=== PATIENT | female | born 1990 | race African-American/Black ===

== ENCOUNTER → 2016-11-05 | Outpatient (CLI) | payer OTHER ==
[~2016-11-05] MED LIST: EFF75 PO; OXYC-57 PO; PRENTAB26 PO; VENL150C56 PO
[2016-11-05 12:29] LABS: URINE APPEARANCE CLEAR (CLEAR); URINE BILIRUBIN NEG (NEG); URINE COLOR YELLOW; URINE NITRITE NEG (NEG); URINE SPECIFIC GRAVITY 1.027 (1.000-1.030); UROBILINOGEN NEG (NEG)
[2016-11-05 12:38] LABS: MANUAL MICROSCOPIC REQUIRED? NO; REVIEW REQ? NO
== END | disposition home or self-care (01) ==
LOC: C.LABSPEC 11:32
PROVIDERS: ATTEND Obstetrics & Gynecology
DX: O34.219 Maternal care for unspecified type scar from previous cesarean delivery (principal); Z3A.00 Weeks of gestation of pregnancy not specified

== ENCOUNTER → 2016-11-12 | Outpatient (CLI) | payer OTHER ==
[2016-11-12 09:59] LABS: BASO % 0.1 %; BASO ABS # 0.01 K/uL (0-0.2); COMPLETE YES; EOS % 0.6 %; HEMATOCRIT 33.5 % (37-47); IG% 0.1 %; LYMPH ABS # 1.87 K/uL (1.2-3.4); MEAN CELL VOLUME 81.9 fL (80-100); MEAN CORPUSCULAR HEMOGLOBIN 27.9 pg (25-34); MONO % 4.6 %; NEUT % 73.6 %; PLATELET COUNT 262 K/uL (130-400); RED BLOOD COUNT 4.09 M/uL (4.2-5.4); WHITE BLOOD COUNT 8.89 K/uL (4.8-10.8)
[2016-11-13 21:13] LABS: CHLAMYDIA TRACH RNA*** NOT DETECTED (NOT DETECTED); GC (NEIS GONORRHOEAE)RNA** NOT DETECTED (NOT DETECTED)
== END | disposition home or self-care (01) ==
LOC: C.LAB1850 08:56
PROVIDERS: ATTEND Obstetrics & Gynecology
DX: O34.219 Maternal care for unspecified type scar from previous cesarean delivery (principal); Z3A.00 Weeks of gestation of pregnancy not specified

== ENCOUNTER → 2017-01-10 | Outpatient (CLI) | payer OTHER ==
[2017-01-10 13:53] LABS: GTGD 50 Grams
== END | disposition home or self-care (01) ==
LOC: C.LAB1850 09:05
PROVIDERS: ATTEND Obstetrics & Gynecology
DX: Z34.82 Encounter for supervision of other normal pregnancy, second trimester (principal)

== ENCOUNTER → 2017-03-06 | Outpatient (CLI) | payer OTHER | LOC: C.PAPS 16:06 | PROVIDERS: ATTEND Obstetrics & Gynecology | DX: D06.9 Carcinoma in situ of cervix, unspecified (principal) ==

== ENCOUNTER → 2017-04-04 | Outpatient (CLI) | payer OTHER ==
[2017-04-04 12:58] LABS: HEMATOCRIT 32.8 % (37-47)
[2017-04-04 13:57] LABS: GTGD 50 Grams
[2017-04-04 14:00] LABS: URINE APPEARANCE CLEAR (CLEAR); URINE BILIRUBIN NEG (NEG); URINE COLOR DK YELLOW; URINE EPITHELIAL CELL AUTO >30 /lpf (0-5); URINE NITRITE NEG (NEG); URINE PH 6.5 (4.5-7.5); URINE SPECIFIC GRAVITY 1.022 (1.000-1.030); UROBILINOGEN POS (NEG)
[2017-04-04 14:04] LABS: MANUAL MICROSCOPIC REQUIRED? NO; REVIEW REQ? NO
== END | disposition home or self-care (01) ==
LOC: C.LAB1850 11:58
PROVIDERS: ATTEND Obstetrics & Gynecology
DX: Z34.83 Encounter for supervision of other normal pregnancy, third trimester (principal)

== ENCOUNTER → 2017-05-31 | Outpatient (CLI) | payer OTHER | END | disposition home or self-care (01) | LOC: C.LABSPEC 17:19 | PROVIDERS: ATTEND Obstetrics & Gynecology | DX: Z34.83 Encounter for supervision of other normal pregnancy, third trimester (principal); Z3A.00 Weeks of gestation of pregnancy not specified ==

== ENCOUNTER 2017-06-03 22:08 | Outpatient (CLI) | payer OTHER ==
[~2017-06-03] VITALS: Ht 165.1 cm; Wt 121.4 kg
[2017-06-03] MEDS ORDERED: EFF75 PO (23:09)
[2017-06-03] MEDS ORDERED: PRENTAB26 PO (23:10)
[2017-06-03 23:11] VITALS: Ht 165.1 cm; Wt 121.4 kg
[2017-06-04] MEDS ORDERED: LACTATED RINGER'S 1000ML 1,000 ML IV SCH (02:00)
[2017-06-04] MEDS ORDERED: ONDANSETRON INJ 2 MG/ML 2 ML VIAL IV STA (03:31)
== END 2017-06-04 03:48 | disposition home or self-care (01) ==
LOC: C.OPB 22:08 → C.LD 22:08 → C.OPB 06-04 03:48
PROVIDERS: ATTEND Obstetrics & Gynecology
DX: O26.90 Pregnancy related conditions, unspecified, unspecified trimester (principal); M54.9 Dorsalgia, unspecified; Z3A.00 Weeks of gestation of pregnancy not specified

== ENCOUNTER 2017-06-05 23:47 | Inpatient (IN) | payer OTHER ==
[~2017-06-05] VITALS: Ht 165.1 cm; Wt 121.0 kg
[~2017-06-05 23:47] MED LIST changes: -OXYC-57 PO; -VENL150C56 PO
[2017-06-06] MEDS ORDERED: LACTATED RINGER'S 1000ML 500 ML IV ONE (00:57)
[2017-06-06 01:45] LABS: ALT/SGPT 53 U/L (12-78); AST/SGOT 60 U/L (15-37); BLOOD UREA NITROGEN 4 mg/dl (7-18); BUN/CREATININE RATIO 6.8 (10-20); CALCIUM 9.3 mg/dl (8.5-10.1); CARBON DIOXIDE 25 mmol/L (21-32); CHLORIDE 107 mmol/L (98-107); CREATININE 0.54 mg/dl (0.60-1.20); GLUCOSE 84 mg/dl (70-99); POTASSIUM 4.1 mmol/L (3.5-5.1); SODIUM 138 mmol/L (136-145)
[2017-06-06 01:48] LABS: ALB/GLOB RATIO 0.6 (0.9-2); ALKALINE PHOSPHATASE 170 U/L (45-117)
[2017-06-06 01:55] VITALS: Ht 165.1 cm; Wt 121.0 kg
[2017-06-06 02:15] LABS: BASO % 0.1 %; BASO ABS # 0.01 K/uL (0-0.2); COMPLETE YES; EOS % 0.9 %; HEMATOCRIT 35.3 % (37-47); IG% 0.2 %; LYMPH % 14.4 %; LYMPH ABS # 1.42 K/uL (1.2-3.4); MEAN CELL VOLUME 85.7 fL (80-100); MEAN CORPUSCULAR HEMOGLOBIN 28.9 pg (25-34); MEAN CORPUSCULAR HGB CONC 33.7 g/dl (32-36); MEAN PLATELET VOLUME 11.6 fL (7.4-10.4); MONO % 6.2 %; NEUT % 78.2 %; PLATELET COUNT 217 K/uL (130-400); RED BLOOD COUNT 4.12 M/uL (4.2-5.4); WHITE BLOOD COUNT 9.88 K/uL (4.8-10.8)
[2017-06-06] MEDS ORDERED: SODIUM CHLORIDE 0.9% 1000ML 1,000 ML IV SCH (02:59)
[2017-06-06] MEDS ORDERED: INFLUENZA VIRUS QUAD VACCINE 0.5 ML SYR IM. ONE (05:00)
[2017-06-06] MEDS ORDERED: INFLUENZA ADMINISTRATION CHARGE ONE (05:00)
[2017-06-06 08:14] LABS: BASO % 0.1 %; BASO ABS # 0.01 K/uL (0-0.2); COMPLETE YES; EOS % 1.2 %; HEMATOCRIT 34.3 % (37-47); IG% 0.3 %; LYMPH % 16.6 %; LYMPH ABS # 1.66 K/uL (1.2-3.4); MEAN CELL VOLUME 85.5 fL (80-100); MEAN CORPUSCULAR HEMOGLOBIN 28.4 pg (25-34); MEAN CORPUSCULAR HGB CONC 33.2 g/dl (32-36); MEAN PLATELET VOLUME 11.2 fL (7.4-10.4); MONO % 5.1 %; NEUT % 76.7 %; PLATELET COUNT 207 K/uL (130-400); RED BLOOD COUNT 4.01 M/uL (4.2-5.4); WHITE BLOOD COUNT 10.03 K/uL (4.8-10.8)
[2017-06-06 08:39] LABS: BLOOD UREA NITROGEN 3 mg/dl (7-18); BUN/CREATININE RATIO 6.3 (10-20); CALCIUM 9.5 mg/dl (8.5-10.1); CARBON DIOXIDE 22 mmol/L (21-32); CHLORIDE 109 mmol/L (98-107); CREATININE 0.49 mg/dl (0.60-1.20); GLUCOSE 69 mg/dl (70-99); POTASSIUM 3.7 mmol/L (3.5-5.1); SODIUM 139 mmol/L (136-145); URIC ACID 4.6 mg/dl (2.6-7.2)
[2017-06-06 08:42] LABS: ALB/GLOB RATIO 0.5 (0.9-2); ALKALINE PHOSPHATASE 162 U/L (45-117); ALT/SGPT 49 U/L (12-78); AST/SGOT 56 U/L (15-37)
[2017-06-06] MEDS ORDERED: ACETAMINOPHEN 325 MG TAB PO STA (09:03)
[2017-06-06] MEDS ORDERED: LACTATED RINGER'S 1000ML 1,000 ML IV SCH ×2 (10:01→11:00)
[2017-06-06] MEDS ORDERED: CITRIC ACID/SODIUM CITRATE 15 ML UDC PO ONE (10:15)
[2017-06-06] MEDS ORDERED: CEFAZOLIN IV 3,000 MG in DEXTROSE 5% 50ML 50 ML IV SCH (10:30)
[2017-06-06] MEDS ORDERED: VENL150C56 PO (10:34)
--- NOTE | 2017-06-06 11:31 | HISTORY & PHYSICAL EXAMINATION ---
DATE OF ADMISSION: 06/06/2017 PRINCIPAL DIAGNOSES: Intrauterine at 37.1 weeks, gestational hypertension and prior section. PRINCIPAL PROCEDURE: Repeat low transverse cervical section. HISTORY OF PRESENT ILLNESS: The patient is a 27-year-old -Maldivian female G3, P1-0-1-1, EDC of 06/25/2017, who presented with a history of nausea and vomiting 3 days ago. This resolved with IV fluids. She then presented with right upper quadrant sharp pain especially when she was coughing the night prior to this admission. During her evaluation, she received IV fluids because of dehydration. She was noted to have pressures that were intermittently 140/90. PIH labs are normal. She did have a mildly elevated AST, which has now normalized. Platelet count is 207,000, which is stable from her prior blood work done approximately 6 hours ago. Because of the persistent elevation and intermittent nature of her elevated blood pressure of 140/90, she has now been diagnosed with gestational hypertension again. Her prior was induced because of gestational hypertension, which resulted in section because of failure to progress. She had already been scheduled for repeat section at 39 weeks; however, because of the development of gestational hypertension again, we are going to proceed with section now. PAST MEDICAL HISTORY: Significant for depression and severe cervical dysplasia. PAST SURGICAL HISTORY: She has had a section in 2010 for failure to progress with no complications. She has had a LEEP procedure in 2016 for the cervical dysplasia. ALLERGIES: She has no known drug allergies. MEDICATIONS: Effexor 150 mg daily and vitamin. OBSTETRICAL AND GYNECOLOGICAL HISTORY: No history of VD, PID or herpes; however, she does have a history of severe cervical dysplasia treated with a LEEP in 2016. She has had one miscarriage in 2008. In 2009, delivery at 37 weeks of a 5 pound 14 ounce male by section because of failure to progress. SOCIAL HISTORY: She smokes occasionally. No alcohol use during . No drugs. HISTORY: Blood type is O positive. Antibody screen is negative. Rubella is immune. RPR is nonreactive. Hepatitis is negative. HIV is negative. Chlamydia and GC are negative. Cystic fibrosis was declined. Diabetes screens have been within normal limits. Anatomy scan was complete and within normal limits. Hemoglobin today is 11.4 and hematocrit 34.3. GBS is negative. Pap smear was within normal limits as well. PHYSICAL EXAMINATION: VITAL SIGNS: Pressures have been ranging from 120/70 to 140/92. LUNGS: Clear to auscultation. HEART: Regular rate and rhythm. No murmurs or gallops. ABDOMEN: Gravid and consistent with term in size. Estimated weight is 6 pounds. There is some mild tenderness in the right upper quadrant with deep palpation. No CVA tenderness is present. She has a well-healed low transverse skin incision. No hepatosplenomegaly or other masses palpable. EXTREMITIES: Without cyanosis or edema. There is no calf tenderness. PELVIC: Deferred. ASSESSMENT: A 27-year-old with a history of gestational hypertension with her first , now presenting with gestational hypertension again by criteria based on blood pressures, although labs are within normal limits. We will proceed with repeat low transverse cervical section at this time as this is the patient's request for repeat section and not a trial of labor. Please see the orders for further directions. PABLO
[2017-06-06] MEDS ORDERED: MoRPHine SULFATE PF 1 MG/ML 10 ML AMP/VIAL ONE (17:08)
[2017-06-06] MEDS ORDERED: CITRIC ACID/SODIUM CITRATE 15 ML UDC ONE (17:22)
[2017-06-06] MEDS ORDERED: OXYTOCIN INJ 10 UNITS/ML VIAL ONE ×2 (18:41→18:52)
[2017-06-06] MEDS ORDERED: ONDANSETRON INJ 2 MG/ML 2 ML VIAL ONE (18:41)
[2017-06-06] MEDS ORDERED: DC PCA PRN (19:15)
[2017-06-06] MEDS ORDERED: LANOLIN OINT EXT PRN ×2 (19:15)
[2017-06-06] MEDS ORDERED: SENNA 8.6 MG TAB PO PRN (19:15)
[2017-06-06] MEDS ORDERED: PROMETHAZINE HCL INJ 25 MG in SODIUM CHLORIDE 0.9% 50ML 50 ML IV PRN (19:15)
[2017-06-06] MEDS ORDERED: MAGNESIUM HYDROXIDE SUSP 30 ML UDC PO PRN (19:15)
[2017-06-06] MEDS ORDERED: SODIUM CHLORIDE 0.9% 1000ML 1,000 ML IV PRN (19:20)
[2017-06-06] MEDS ORDERED: NALOXONE HCL INJ 0.08 MG in SYRINGE 1.8 ML IV PRN (19:20)
[2017-06-06] MEDS ORDERED: NALOXONE HCL INJ 1 MG in SODIUM CHLORIDE 0.9% 1000ML 1,000 ML IV PRN (19:20)
[2017-06-06] MEDS ORDERED: LACTATED RINGER'S 1000ML 500 ML IV PRN (19:20)
--- NOTE | 2017-06-06 19:20 | Anesthesiology Progress Note ---
Anesthesia Post Op Note Date & Time Jun 06, 2017 at 19:20 Vital Signs Pain Intensity: 7.0 Notes Mental Status: alert / awake / arousable, participated in evaluation Pt Amnestic to Procedure: Yes Nausea / Vomiting: adequately controlled Pain: adequately controlled Airway Patency, RR, SpO2: stable & adequate BP & HR: stable & adequate Hydration State: stable & adequate Neuraxial Anesthesia: was administered, sensory block is resolving Anesthetic Complications: no major complications apparent
[2017-06-06] MEDS ORDERED: ONDANSETRON INJ 2 MG/ML 2 ML VIAL IV PRN (19:30)
[2017-06-06] MEDS ORDERED: NALBUPHINE HCL INJ 10 MG/ML AMP IV PRN (19:30)
[2017-06-06] MEDS ORDERED: EpHEDrine SULFATE INJ 50 MG/ML AMP IV PRN (19:30)
[2017-06-06] MEDS ORDERED: NO NARCOTICS OR SEDATIVES SCH (19:30)
[2017-06-06] MEDS ORDERED: DiphenhydrAMINE HCL 50 MG/ML VIAL IV PRN (19:30)
[2017-06-06] MEDS ORDERED: NALOXONE HCL 0.4 MG/1 ML VIAL/CARP IV PRN (19:30)
[2017-06-06] MEDS ORDERED: MoRPHine SULFATE 2 MG/ML CARP IV PRN (19:30)
[2017-06-06] MEDS ORDERED: MoRPHine SULFATE PF 1 MG/ML 10 ML AMP/VIAL INT SPINAL PRN (19:30)
[2017-06-06] MEDS ORDERED: KETOROLAC TROMETHAMINE 30 MG/ML VIAL ONE (19:48)
[2017-06-06] MEDS: MEPERIDINE HCL 25 MG/ML CARP IV PRN (20:47)
[2017-06-06] MEDS: OXYTOCIN INJ 20 UNITS in LACTATED RINGER'S 1000ML 1,000 ML IV SCH (21:41)
[2017-06-06 21:50] VITALS: BP 125/88; PULSE 67; TEMP 36.5; O2SAT 98
[2017-06-06] MEDS: DOCUSATE SODIUM 100 MG CAP PO SCH (22:07)
[2017-06-06] MEDS: SIMETHICONE 80 MG CHEW PO SCH (22:08)
[2017-06-06 22:55] VITALS: BP 129/84; PULSE 66; TEMP 36.5; O2SAT 99
[2017-06-07] VITALS (16 sets, daily range): BP systolic 125–136; BP diastolic 80–96; PULSE 76–97; TEMP 36.5–37; O2SAT 16–99
--- NOTE | 2017-06-07 00:27 | OPERATIVE REPORT ---
DATE OF OPERATION: 06/06/2017 SURGEON: Dr. Dot Vargas. MAIL CLERK: Anel Jose DO. PREOPERATIVE DIAGNOSIS: Intrauterine at 37.1 weeks, gestational hypertension and prior section. POSTOPERATIVE DIAGNOSIS: Same plus delivery of a viable female infant, 5 pounds 7 ounces. PROCEDURE: Repeat low transverse cervical section. ANESTHESIA: Subarachnoid block. BLOOD LOSS: 500 mL HISTORY: The patient is a 27-year-old -Hungarian female G3, P1-0-1-1, EDC of 06/25/2017 who presented with a history of nausea and vomiting 3 days ago. She received IV fluids in the Emergency Room and was feeling better but developed sharp right upper quadrant pain, especially with coughing the night prior to this admission. During her evaluation, she was noted to have blood pressures that were in the range above 140/90. This was happening intermittently. PIH labs were all within normal limits. She did have history of gestational hypertension with her first because she was 37 weeks and having blood pressures that were persistently elevated, thus giving us a diagnosis of gestational hypertension once again, it was felt prudent to proceed with repeat low transverse cervical section. The patient understands the risks of the procedure, and all her questions were answered prior to going to the section room. GROSS FINDINGS: Uterus is gravid and consistent with a term in size. Bilateral ovaries and fallopian tubes are grossly normal. PROCEDURE: After the patient received adequate subarachnoid block, she was prepped and draped in usual sterile fashion. A low transverse skin incision was made through her prior scar and carried to the fascia with the same scalpel. The fascial incision was then extended with Anderson scissors. The edges were then grasped with Wale clamps and the underlying rectus muscles bluntly and sharply dissected off the overlying fascia. The peritoneum was entered sharply and the rectus muscles were then completely divided along the midline with Metzenbaum scissors. The bladder was taken down off the anterior surface of the uterus. Lower uterine segment was entered with a scalpel and extended transversely. The membranes were ruptured for clear fluid. The was delivered from the occiput posterior presentation. Delivery was accomplished with flexing the head. Mouth and nasopharynx were suctioned on the operative field. The rest of the infant delivered without difficulty. Cord was clamped and cut. There was spontaneous vigorous crying and the was moving all 4 limbs. She was then handed off to Dr. Cardenas who was in attendance as eligibility consultant. The placenta was then extracted and retained membranes were then removed using a moist lap sponge and ring forceps. The uterus was then closed in 2 layers in a running locking imbricating fashion. The hemostasis was excellent on the uterine incision. The posterior cul-de-sac was irrigated with normal saline. The incision was examined once more and continued to have excellent hemostasis. The uterus was placed back inside the abdominal cavity and the gutters were explored and found to be free of any clot or fluid. The rectus muscles were closed in the midline with individual stitches of 0 Monocryl. The fascia was closed in a running fashion with 0 Vicryl. The adipose layer was then irrigated with normal saline and the skin edges were reapproximated using a subcuticular stitch of 4-0 Vicryl. Urine was clear at the end of the case. Mother and were doing well after delivery. I attest to the content of the Intraoperative Record and any orders documented therein. Any exception s are noted below.
[2017-06-07] MEDS: GUAIFENESIN 600 MG TABCR PO PRN ×2 (00:58→22:21)
[2017-06-07] MEDS: KETOROLAC TROMETHAMINE 30 MG/ML VIAL IV. PRN ×2 (02:29→08:14)
[2017-06-07] MEDS: OXYTOCIN INJ 20 UNITS in LACTATED RINGER'S 1000ML 1,000 ML IV SCH (05:43)
[2017-06-07 06:29] LABS: HEMATOCRIT 31.2 % (37-47)
[2017-06-07] MEDS ORDERED: VENLAFAXINE HCL XR 150 MG CAPXR PO SCH (08:00)
[2017-06-07] MEDS ORDERED: PRENATAL VITAMIN TAB PO SCH (08:00)
[2017-06-07] MEDS: SIMETHICONE 80 MG CHEW PO SCH ×4 (08:26→22:21)
[2017-06-07] MEDS: DOCUSATE SODIUM 100 MG CAP PO SCH ×2 (08:26→20:32)
[2017-06-07] MEDS: PRENATAL VITAMIN TAB PO SCH (08:27)
[2017-06-07] MEDS: VENLAFAXINE HCL XR 150 MG CAPXR PO SCH (08:27)
--- NOTE | 2017-06-07 08:55 | Progress Note ---
Subjective Jun 07, 2017. Subjective conversation w/ patient, physical exam, chart review, lab review Ambulation: limited ambulation Voiding: cameron catheter in place Diet Tolerance: Clear Liquids Lochia: Moderate Feeding Type: Breast Feeding Pain: controlled Review of Systems Respiratory: No shortness of breath Cardiac: No chest pain Abdomen: No nausea, No vomiting Female : No dysuria Objective Vital Signs Date Time Temp Pulse Resp B/P (MAP) Pulse Ox O2 Delivery O2 Flow Rate FiO2 06/07/17 06:50 16 97 06/07/17 05:50 16 97 06/07/17 04:50 16 98 06/07/17 03:55 36.7 78 16 133/89 (104) 95 Room Air 06/07/17 03:50 16 99 06/07/17 02:50 16 98 06/07/17 01:50 97 16 06/07/17 00:50 16 98 06/07/17 00:05 36.5 90 16 126/85 (99) 96 Room Air 06/07/17 00:05 16 96 06/06/17 22:55 36.5 66 16 129/84 (99) 99 Room Air 06/06/17 22:55 Room Air 06/06/17 22:55 16 99 06/06/17 21:50 98 Room Air 06/06/17 21:50 Room Air 06/06/17 21:50 16 98 06/06/17 21:50 36.5 67 16 125/88 (100) Room Air Physical Exam General Appearance: WELL-APPEARING, WD/WN, NO APPARENT DISTRESS Respiratory/Chest: lungs clear, normal breath sounds, no respiratory distress Cardiovascular: regular rate, rhythm, no gallop Abdomen: normal bowel sounds, soft Fundus: Firm, Tender (appropriately tender), Relation to Umbilicus (at level of U) Incision Description: Clean, Dry & Intact Extremities: no calf tenderness Laboratory Results Last 24 Hours Test 06/07/17 06:06 Hemoglobin 10.2 g/dL Hematocrit 31.2 % Assessment and Plan Post-Op Day#: 1 Continue Routine Care: Resident Physician Supervision Note: I was present with Dr. Marie during the history and exam. I discussed the case with the resident and agree with the findings and plan as documented in the note. Any exceptions or clarifications are listed here: [None] Documented By: Dot Matos - Vital Signs reviewed and WNL.. - Hgb 10.2 (on admission was 11.9. Post op 11.4.) - Blood Type: O+, GBS - , Rubella Immune. - Pt is doing well clinically. - Monitor and Control pain with Motrin PRN, resume regular diet as tolerated, Monitor Lochia. - Encourage breast feeding. - Continue routine post op care. LINDY MARIE PGY1 FM RESIDENT Resident Tracking Resident Involvement: Resident Care Provided Care Provided: OB Delivery
[2017-06-07] MEDS: MEPERIDINE HCL 25 MG/ML CARP IV PRN (10:04)
[2017-06-07] MEDS ORDERED: MEPERIDINE HCL 50 MG/ML CARP IV PRN ×2 (12:00)
[2017-06-07] MEDS ORDERED: ZOLPIDEM TARTRATE 5 MG TAB PO PRN (12:00)
[2017-06-07] MEDS ORDERED: OXYCODONE/ACETAMINOPHEN 5-325 TAB PO PRN (12:00)
[2017-06-07] MEDS ORDERED: DiphenhydrAMINE HCL 50 MG/ML VIAL IV PRN (12:00)
[2017-06-07] MEDS ORDERED: DC INTRASPINAL MORPHINE SCH (12:00)
[2017-06-07] MEDS ORDERED: KETOROLAC TROMETHAMINE 30 MG/ML VIAL IV. PRN (12:00)
[2017-06-07] MEDS ORDERED: ONDANSETRON INJ 2 MG/ML 2 ML VIAL IV PRN (12:00)
[2017-06-07] MEDS: IBUPROFEN 600 MG TAB PO PRN ×3 (12:13→20:32)
[2017-06-07] MEDS: OXYCODONE/ACETAMINOPHEN 5-325 TAB PO PRN ×3 (12:13→20:33)
--- NOTE | 2017-06-07 15:26 | Discharge Instructions ---
Discharge Instructions Date of Service Jun 07, 2017. Admission Reason for Admission: Check Pain Discharge Discharge Diagnosis / Problem: DELIVERY Discharge Goals Goal(s): Routine recovery after Medications Continue Dispensed Medications: supercream, dermaplast, tucks, lansinoh Activity Recommendations Activity Limitations: per Instructions/Follow-up section . Instructions / Follow-Up Instructions / Follow-Up ACTIVITY RECOMMENDATIONS: * Gradual return to full activity over the next 2-3 weeks. * No lifting - nothing heavier than baby over the next 2-3 weeks. * Do not engage in vigorous exercise, sexual activity or sports until cleared by your physician. * Do not drive or operate any motorized equipment until cleared by your physician. * You may shower/bathe daily. MEDICATIONS: For discomfort or pain, you may use Acetaminophen (Tylenol), Ibuprofen (Advil), or Naproxen (Aleve) following the package directions. For constipation you may use Colace following the package directions. BREAST CARE: If you are not breast feeding: * Wear a supportive bra 24 hours a day for one to two weeks. * Avoid stimulating your breasts and nipples as much as possible during the first few weeks after delivery. * When taking a shower, have the warm water hit your back, not breasts. * When your breasts feel full, apply ice packs. Usually three to four times a day helps ease the discomfort. * Take a mild pain medication (Tylenol / Motrin) when you are uncomfortable. If breast feeding: * Use breast milk to lubricate nipples. Lansinoh cream may be used for sore nipples. You do not need to remove cream prior to breast feeding. If using a different brand of cream, check the label for directions regarding removal of cream prior to nursing. * Wear a supportive bra. * If having problems with breasts or breast feeding, call a industrial methods consultant or your health care provider. SPECIAL CARE INSTRUCTIONS: When you are discharged from the hospital, it is important for you to follow the instructions listed below: * During the first week at home, you should be able to care for yourself and your baby. In addition, the usual light household activities are encouraged. * Limit your activities to the way you feel. Do not try to clean the house or move furniture. Be sensible. * If you actively engage in sports and have done so up until the time of your delivery, you may resume these activities as soon as you feel able. This may take up to one month or even longer. Use good judgment. * Continue to take your vitamins for at least six weeks after the of your baby. * Your diet need not be limited unless you were on a special diet before your delivery. Breast-feeding mothers need around 2500 calories per day and at least 64-80 ounces of fluid per day (8 to 10 glasses). * You should eat foods from the four major food groups. Crash diets or fad diets are to be avoided. Eating lean meats, fresh fruits and vegetables, low-fat dairy products, high fiber foods and a regular exercise program, will help you get back to your pre- weight without putting your health at risk. * Constipation is sometimes a problem after delivery. Take a mild laxative as needed. If breast feeding, Milk of Magnesia is acceptable to use. You may use a suppository or Fleets enema. * A daily shower or tub bath is suggested. Wash incision daily with warm soapy water and pat dry. It doesn't need to be covered unless drainage is present. * A bloody vaginal discharge will usually continue until around four weeks . A small amount of bleeding may continue for as long as six weeks. Vaginal discharge changes from the bright red bleeding after delivery to pink then brownish and finally yellowish-pink before becoming white and disappearing. * Bleeding may increase with activity. Your first period may come in 4-8 weeks. If you are breast feeding, your period may be delayed even longer. * [place] (sex) can begin whenever both you and your partner feel comfortable and do not have any form of genital infection. It is recommended that you wait at least six weeks for internal and external healing to occur. If you have questions, please talk to your health care practitioner. A condom should be used to prevent infection and . * Foreplay, gentle intercourse and lubrication is very important the first several times to prevent pain. A water-based lubricant such as K-Y jelly or Astroglide may be used. * If you have RH negative blood and your baby is RH positive, you will receive RHOGAM by injection prior to discharge. The nurse will give you a card to keep with you that has the date and place that you received RHOGAM after delivery. * During your care, you had a Rubella screen done to check for the presence of rubella antibodies in your blood. If your test was negative, you will receive a Rubella vaccine prior to discharge. This vaccine may cause a fever, soreness at the injection site and flu-like symptoms. If these symptoms persist, notify your health care practitioner. is not advised for one month after a Rubella vaccine. * Verbalizes understanding of car seat law as reviewed with patient nursing. * Car Seat hand-out given and reviewed with patient by nursing. * Shaken baby information reviewed with patient by nursing. Call you doctor if: * Heavy bleeding (saturating several pads an hour) or passing clots the size of your fist. * A fever >101 degrees F (38.3 degrees C) on two occasions four hours apart and /or chills. * Unusual pain in the pelvic or vaginal areas. * Call the doctor for any increased redness, drainage or swelling around the incision and any pain unrelieved by prescribed pain medication. * "Baby Blues" lasting longer than two weeks. If you have any questions or concerns, call your health care practitioner at . FOLLOW UP VISIT: * Please call the office at to schedule a 6 week examination. It is important you keep this appointment. It is important for you to make arrangements for either yearly or twice yearly check-ups thereafter. Current Hospital Diet Patient's current hospital diet: Regular OB Diet Discharge Diet Recommended Diet: Regular Diet Procedures Procedures Performed: LOW TRANSVERSE SECTION DELIVERY FOR LIVE FEMALE INFANT AT 1822 Pending Studies Studies pending at discharge: no Medical Emergencies . Who to Call and When: Medical Emergencies: If at any time you feel your situation is an emergency, please call [phone] immediately. . Non-Emergent Contact Non-Emergency issues call your: Primary Care Provider . . "Provider Documentation" section prepared by Lucia Marie. . VTE Core Measure Inpt VTE Proph given/why not?: SCD's
[2017-06-07] MEDS ORDERED: BISACODYL 5 MG TABEC PO ONE (22:00)
[2017-06-08] MEDS: IBUPROFEN 600 MG TAB PO PRN ×4 (03:47→18:36)
[2017-06-08] MEDS: OXYCODONE/ACETAMINOPHEN 5-325 TAB PO PRN ×4 (03:48→18:35)
[2017-06-08 08:12] LABS: BASO % 0.1 %; BASO ABS # 0.01 K/uL (0-0.2); COMPLETE YES; EOS % 0.9 %; HEMATOCRIT 29.1 % (37-47); IG% 0.3 %; LYMPH % 16.7 %; LYMPH ABS # 1.69 K/uL (1.2-3.4); MEAN CELL VOLUME 84.3 fL (80-100); MEAN CORPUSCULAR HEMOGLOBIN 28.1 pg (25-34); MEAN CORPUSCULAR HGB CONC 33.3 g/dl (32-36); MEAN PLATELET VOLUME 11.1 fL (7.4-10.4); MONO % 5.2 %; NEUT % 76.8 %; PLATELET COUNT 180 K/uL (130-400); RED BLOOD COUNT 3.45 M/uL (4.2-5.4); WHITE BLOOD COUNT 10.09 K/uL (4.8-10.8)
--- NOTE | 2017-06-08 08:20 | Progress Note ---
Subjective Jun 08, 2017. Subjective conversation w/ patient, physical exam, chart review, lab review Ambulation: ambulating normally Voiding: no voiding problems Passing Gas: Yes Diet Tolerance: Regular Diet Lochia: Moderate Feeding Type: Breast Feeding Pain: controlled Review of Systems Respiratory: No shortness of breath Cardiac: No chest pain Abdomen: No nausea, No vomiting Female : No dysuria Objective Vital Signs Date Time Temp Pulse Resp B/P (MAP) Pulse Ox O2 Delivery O2 Flow Rate FiO2 06/07/17 23:50 Room Air 06/07/17 23:50 36.7 76 18 132/92 (105) Room Air 06/07/17 16:15 36.6 87 20 134/84 (101) 98 Room Air 06/07/17 16:15 98 Room Air 06/07/17 12:00 36.8 97 24 125/96 (106) 96 Room Air 06/07/17 12:00 24 96 06/07/17 11:00 20 97 06/07/17 10:00 20 97 06/07/17 09:00 20 97 Physical Exam General Appearance: WELL-APPEARING, WD/WN, NO APPARENT DISTRESS Respiratory/Chest: lungs clear, normal breath sounds, no respiratory distress Cardiovascular: regular rate, rhythm, no gallop Abdomen: normal bowel sounds, soft Fundus: Firm, Tender (appropriately tender), Relation to Umbilicus (1 below U) Incision Description: Clean, Dry & Intact Extremities: no calf tenderness Laboratory Results Last 24 Hours Test 06/08/17 07:03 White Blood Count 10.09 K/uL Red Blood Count 3.45 M/uL Hemoglobin 9.7 g/dL Hematocrit 29.1 % Mean Corpuscular Volume 84.3 fL Mean Corpuscular Hemoglobin 28.1 pg Mean Corpuscular Hemoglobin Concent 33.3 g/dl Platelet Count 180 K/uL Mean Platelet Volume 11.1 fL Neutrophils (%) (Auto) 76.8 % Lymphocytes (%) (Auto) 16.7 % Monocytes (%) (Auto) 5.2 % Eosinophils (%) (Auto) 0.9 % Basophils (%) (Auto) 0.1 % Neutrophils # (Auto) 7.75 K/uL Lymphocytes # (Auto) 1.69 K/uL Monocytes # (Auto) 0.52 K/uL Eosinophils # (Auto) 0.09 K/uL Basophils # (Auto) 0.01 K/uL RDW Standard Deviation 41.1 fL RDW Coefficient of Variation 13.6 % Immature Granulocyte % (Auto) 0.3 % Immature Granulocyte # (Auto) 0.03 K/uL Assessment and Plan Post-Op Day#: 2 Continue Routine Care: - Vital Signs reviewed and WNL.. - Hgb 9.7 (on admission was 11.9. Post op 11.4. Yesterday was 10.2) - Blood Type: O+, GBS - , Rubella Immune. - Pt is doing well clinically. - Monitor and Control pain with Motrin PRN, resume regular diet as tolerated, Monitor Lochia. - Encourage breast feeding. - Continue routine post op care. LINDY MARIE PGY1 FM RESIDENT Resident Physician Supervision Note: I was present with Dr. Marie during the history and exam. I discussed the case with the resident and agree with the findings and plan as documented in the note. Any exceptions or clarifications are listed here: POD#2 doing well .Continue routine postop care. Documented By: Anel Jose Resident Tracking Resident Involvement: Resident Care Provided Care Provided: OB Delivery
[2017-06-08 08:57] VITALS: BP 135/84; PULSE 98; TEMP 36.7; O2SAT 97
[2017-06-08] MEDS: SIMETHICONE 80 MG CHEW PO SCH ×4 (08:57→20:14)
[2017-06-08] MEDS: PRENATAL VITAMIN TAB PO SCH (08:58)
[2017-06-08] MEDS: DOCUSATE SODIUM 100 MG CAP PO SCH ×2 (08:58→20:14)
[2017-06-08] MEDS: VENLAFAXINE HCL XR 150 MG CAPXR PO SCH (08:58)
[2017-06-08 14:59] VITALS: BP 141/93; PULSE 94; TEMP 36.7; O2SAT 98
[2017-06-08 23:15] VITALS: BP 143/96; PULSE 79; TEMP 36.5
[2017-06-09 03:45] VITALS: BP 123/88; PULSE 88; TEMP 36.4
[2017-06-09] MEDS: IBUPROFEN 600 MG TAB PO PRN ×3 (03:52→11:56)
[2017-06-09] MEDS: OXYCODONE/ACETAMINOPHEN 5-325 TAB PO PRN ×3 (03:53→11:57)
[2017-06-09 07:40] VITALS: BP 137/94; PULSE 80; TEMP 36.5; O2SAT 99
[2017-06-09] MEDS: DOCUSATE SODIUM 100 MG CAP PO SCH (07:50)
[2017-06-09] MEDS: VENLAFAXINE HCL XR 150 MG CAPXR PO SCH (07:50)
[2017-06-09] MEDS: PRENATAL VITAMIN TAB PO SCH (07:50)
[2017-06-09] MEDS: SIMETHICONE 80 MG CHEW PO SCH ×2 (07:50→11:56)
[2017-06-09] MEDS ORDERED: OXYC-57 PO (08:58)
--- NOTE | 2017-06-09 08:58 | Progress Note ---
Subjective Jun 09, 2017. Subjective conversation w/ patient, physical exam, lab review Ambulation: ambulating normally Voiding: no voiding problems Passing Gas: Yes Diet Tolerance: Regular Diet Lochia: Small Feeding Type: Breast Feeding Pain: controlled with oral pain meds Objective Vital Signs Date Time Temp Pulse Resp B/P (MAP) Pulse Ox O2 Delivery O2 Flow Rate FiO2 06/09/17 03:45 36.4 88 18 123/88 (100) Room Air 06/08/17 23:15 Room Air 06/08/17 23:15 36.5 79 20 143/96 (112) Room Air 06/08/17 16:50 Room Air 06/08/17 14:59 36.7 94 16 141/93 (109) 98 Room Air 06/08/17 09:02 Room Air Physical Exam General Appearance: WELL-APPEARING, WD/WN, NO APPARENT DISTRESS Respiratory/Chest: lungs clear, normal breath sounds Cardiovascular: regular rate, rhythm Abdomen: normal bowel sounds, non tender, soft Fundus: Firm, Non-Tender, Relation to Umbilicus (at u) Incision Description: Clean, Dry & Intact Extremities: non-tender, normal inspection, no pedal edema Assessment and Plan Post-Op Day#: 3 Continue Routine Care: Plan d/c. Instructions given. Script for narcotics and breast pump.
[2017-06-09 12:00] VITALS: BP 135/86
[2017-06-09 14:45] VITALS: BP_DIAS 86; PULSE 80; TEMP 36.5
--- NOTE | 2017-06-15 00:09 | DISCHARGE SUMMARY ---
PRINCIPAL DIAGNOSES: Intrauterine at 37.1 weeks, gestational hypertension and prior section. PRINCIPAL PROCEDURE: Repeat low transverse cervical section. HISTORY OF PRESENT ILLNESS: The patient is a 27-year-old -Micron[place] female G3, P1-0-1-1 EDC of 06/25/2017 presented with a history of nausea and vomiting 3 days prior to her admission. She received IV fluids in the Emergency Room and was feeling better but developed sharp right lower quadrant pain, especially with coughing. She presented to labor and delivery for evaluation. During that evaluation, her liver enzymes were somewhat elevated with an AST of 60. Blood pressures on several readings were 140/90 or higher. Her pain did resolve and seemed to be musculoskeletal in origin, her AST also normalized; however, because of her elevated blood pressures, she met criteria for gestational hypertension and being at 37 weeks was felt prudent to proceed with her repeat section which she had scheduled for later in the . This was done without complications. The infant was in the direct OP presentation with delivery. She had an uncomplicated postop course. Her blood pressures normalized as well after delivery, she remained afebrile throughout her hospital course. She was eating regular diet and ambulating without any difficulty. She was also voiding without any difficulty. Pain was well controlled with her oral medications. LABORATORY DATA: Hemoglobin on admission was 11.9, hematocrit 35.3, platelet count was 217,000. Postoperatively, hemoglobin 10.2, hematocrit 31.2. Repeat on her second postop day - hemoglobin 9.7, hematocrit 29.1 with a white count of 180,000. She was sent home with prescriptions for Percocet 1-2 tablets p.o. q. 4 hours p.r.n. pain, Motrin 600 mg p.o. q. 4 hours p.r.n. pain. She is to be seen in the office in 2 weeks for a blood pressure check as well as a 6-week visit from delivery for her exam. She is to call for any PIH symptoms including epigastrics epigastric pain, headaches with visual changes. She is also call for temperature of 101 degrees or higher, heavy vaginal bleeding, burning with urination, increased redness, drainage or pain from her incision, calf tenderness or any other concerns. PABLO
== END 2017-06-09 15:20 | disposition home or self-care (01) | DRG 765 ==
LOC: C.OPB 23:47 → C.OBG 23:47 → C.OPB 06-06 10:04 → C.LD 06-06 19:23 → C.OBG 06-06 21:55
PROVIDERS: ADMIT Obstetrics & Gynecology; ATTEND Obstetrics & Gynecology
PROC: 10D00Z1 Extraction of Products of Conception, Low, Open Approach (ICD-10-PCS; principal; 2017-06-06 17:58)
DX: O13.4 Gestational [pregnancy-induced] hypertension without significant proteinuria, complicating childbirth (principal); Z68.41 Body mass index [BMI] 40.0-44.9, adult; O34.211 Maternal care for low transverse scar from previous cesarean delivery; N85.8 Other specified noninflammatory disorders of uterus; O99.52 Diseases of the respiratory system complicating childbirth; J06.9 Acute upper respiratory infection, unspecified; O99.284 Endocrine, nutritional and metabolic diseases complicating childbirth; E86.0 Dehydration; O99.89 Other specified diseases and conditions complicating pregnancy, childbirth and the puerperium; R10.11 Right upper quadrant pain; R51 Headache; O99.334 Smoking (tobacco) complicating childbirth; F17.200 Nicotine dependence, unspecified, uncomplicated; O99.344 Other mental disorders complicating childbirth; F32.9 Major depressive disorder, single episode, unspecified; F41.9 Anxiety disorder, unspecified; O99.214 Obesity complicating childbirth; Z37.0 Single live birth; Z3A.37 37 weeks gestation of pregnancy; Z86.001 Personal history of in-situ neoplasm of cervix uteri; Z79.899 Other long term (current) drug therapy

== ENCOUNTER 2017-08-27 09:33 | Emergency (ER) | payer OTHER ==
[~2017-08-27] VITALS: Ht 165.1 cm; Wt 114.0 kg
[~2017-08-27 09:33] MED LIST changes: -EFF75 PO; +OXYC-57 PO; +VENL150C56 PO
[2017-08-27 09:37] VITALS: TEMP 37.4; Ht 165.1 cm; Wt 114.0 kg
[2017-08-27] MEDS ORDERED: SODIUM CHLORIDE 0.9% 1000ML 1,000 ML IV STA (09:59)
[2017-08-27 10:18] LABS: URINE APPEARANCE CLEAR (CLEAR); URINE BILIRUBIN NEG (NEG); URINE COLOR YELLOW; URINE EPITHELIAL CELL AUTO 20-30 /lpf (0-5); URINE NITRITE NEG (NEG); URINE PH 5.5 (4.5-7.5); URINE SPECIFIC GRAVITY 1.021 (1.000-1.030); UROBILINOGEN NEG (NEG); ZZUR CULT IF INDIC CLEAN CATCH NO
[2017-08-27 10:20] LABS: MANUAL MICROSCOPIC REQUIRED? NO; REVIEW REQ? NO
[2017-08-27 10:37] LABS: BASO % 0.1 %; BASO ABS # 0.01 K/uL (0-0.2); COMPLETE YES; EOS % 0.1 %; HEMATOCRIT 38.1 % (37-47); IG% 0.3 %; LYMPH % 12.3 %; LYMPH ABS # 0.98 K/uL (1.2-3.4); MEAN CELL VOLUME 83.7 fL (80-100); MEAN CORPUSCULAR HEMOGLOBIN 28.8 pg (25-34); MEAN CORPUSCULAR HGB CONC 34.4 g/dl (32-36); MEAN PLATELET VOLUME 10.3 fL (7.4-10.4); MONO % 4.9 %; NEUT % 82.3 %; PLATELET COUNT 294 K/uL (130-400); RED BLOOD COUNT 4.55 M/uL (4.2-5.4); WHITE BLOOD COUNT 7.99 K/uL (4.8-10.8)
[2017-08-27 10:54] LABS: BUN/CREATININE RATIO 11.5 (10-20); CALCIUM 9.2 mg/dl (8.5-10.1); CREATININE 0.85 mg/dl (0.60-1.20); POTASSIUM 3.4 mmol/L (3.5-5.1)
--- NOTE | 2017-08-27 11:25 | DIAGNOSTIC IMAGING REPORT ---
HEAD WITHOUT CONTRAST (CT) CLINICAL HISTORY: 27 years-old Female presenting with ? Seizure on right side, vomiting and diarrhea, dizzy, fall without loss of consciousness. TECHNIQUE: Multidetector CT imaging of the head was performed without the use of intravenous contrast. IV contrast: None. A dose lowering technique was used consistent with the principles of ALARA (as low as reasonably achievable). COMPARISON: None. CT DOSE (mGy.cm): The estimated cumulative dose is 537.48 mGy.cm. FINDINGS: [facility] Supervisor topogram: Unremarkable. Ventricles and sulci normal in size. Brain parenchyma normal in appearance with preserved marcelo-white differentiation. No mass effect or midline shift. No hemorrhage or acute territorial infarct. No extra-axial fluid collection. Paranasal sinuses and mastoid air cells clear. Calvarium intact. IMPRESSION: 1. No acute intracranial abnormality. Electronically signed by: Jorge Ruth M.D. 08/27/2017 11:24 AM Dictated Date/Time: 08/27/2017 11:21 AM
--- NOTE | 2017-08-27 14:17 | DIAGNOSTIC IMAGING REPORT ---
MRI OF THE BRAIN COMBO CLINICAL HISTORY: Right-sided weakness. COMPARISON STUDY: CT of the brain dated 08/27/2017. TECHNIQUE: MRI of the brain was performed utilizing various T1 and T2-weighted sequences in the axial, sagittal, and coronal planes. Contrast-enhanced sequences were acquired following the administration of 11 cc of Gadavist. FINDINGS: Brain parenchyma: The brain parenchyma is normal in appearance. There is no hemorrhage or mass effect. There is no restricted diffusion to suggest acute ischemia. No enhancing mass lesion is identified on the postcontrast images. Barrera-white matter differentiation is preserved. No extra-axial fluid collection is seen. The cerebellar tonsils are normal in configuration. Ventricles, sulci, and cisterns: Normal in configuration. Pituitary and sella: Unremarkable. Intracranial vasculature: Normal flow voids are maintained at the skull base. Orbits: The bony orbits are grossly intact. Orbital contents are normal in appearance. Sinuses and mastoids: Clear. Calvarium: Unremarkable. Cervical cord: Partially visualized cervical spinal cord is normal in morphology and signal intensity. IMPRESSION: No acute intracranial abnormality. Electronically signed by: Dani Peraza M.D. 08/27/2017 2:16 PM Dictated Date/Time: 08/27/2017 2:12 PM
--- NOTE | 2017-08-27 14:29 | DIAGNOSTIC IMAGING REPORT ---
CERVICAL SPINE COMBO HISTORY: 27 years-old Female r sided shaking and weakness acute right-sided weakness with arm tingling. COMPARISON: Brain MRI and CT head of same day TECHNIQUE: Multiplanar multisequence MRI of the cervical spine was obtained both with and without the use of 11 mL Gadavist FINDINGS: The large gzxcb-il-[id number] measurement psychologist localizer images demonstrate no gross abnormality. Sagittal STIR images are mildly motion degraded. No acute fracture, subluxation, focal bone marrow or soft tissue edema. Imaged posterior fossa structures are unremarkable. Signal within the cervical spinal cord is within normal limits. No abnormal enhancement identified. Postcontrast and T2 axial images are also moderately motion degraded. No significant intervertebral disc space narrowing or degenerative changes identified. C2-C3: Normal. C3-C4: Normal. C4-C5: Mild uncovertebral spurring without central canal or foraminal narrowing. C5-C6: Mild intervertebral disc space narrowing without central canal or foraminal narrowing. C6-C7: Normal. C7-T1: Normal. The imaged upper thoracic levels are within normal limits. IMPRESSION: 1. Motion degraded exam without acute fracture or subluxation. 2. No significant degenerative changes, central canal or foraminal narrowing. 3. No abnormal enhancement. The above report was generated using voice recognition software. It may contain grammatical, syntax or spelling errors. Electronically signed by: Forest Bragg M.D. 08/27/2017 2:28 PM Dictated Date/Time: 08/27/2017 2:22 PM
[2017-08-27 15:44] VITALS: BP 173/106; PULSE 74; O2SAT 99
--- NOTE | 2017-08-27 17:07 | EMERGENCY ROOM VISIT NOTE ---
History Report prepared by Dominic: Soham Cooper Under the Supervision of: Dr. Joey Jaquez D.O. First contact with patient: 09:41 Chief Complaint: VOMITING Stated Complaint: LAST NIGHT VOMITING TODAY RT SIDE SHAKING ABD WEAK Nursing Triage Summary: vomiting/diarrhea, fell down after feeling "wavy on right side". History of Present Illness The patient is a 27 year old female who presents to the Emergency Room with complaints of two resolved episodes of right sided weakness and shaking occurring earlier today around 0800. The patient states that this morning she was getting out of her car and went to step, and both of her legs became shaky, and they felt weak. Both legs started to shake uncontrollably. Additionally she states that her right arm was shaking uncontrollably. She notes that this first episode lasted around two minutes, and afterwards she was able to get up and walk around. The patient states that a little later while at work she was getting up from a couch and she felt weak and then her arm started jerking, and her right leg felt weak again. The patient notes that she was able to grab the wall before falling down, and this episode lasted for 45 seconds to a minute. While on the ground she was shaking her right arm and did not have control of it at this time. The patient notes that she additionally has had a headache since this morning which she describes as mild and with a gradual onset. She notes that this is similar to her normal headaches. The patient additionally states that last night she was vomiting and had diarrhea, though she states that these symptoms have resolved today. She states that she has not taken her Effexor this morning, and she usually takes it for depression and anxiety. The patient denies nay history of seizures, sickle cell, or other medical problems. She notes that her last period was in September, though she just recently had a baby. Pt denies any abdominal pain, change in vision, fevers, chest pain, shortness of breath, pain with urination, and melena. Source of History: patient Onset: 0800 Position: other (right side) Quality: other (weak and shaking ) Timing: resolved Associated Symptoms: + headache, + nausea, + vomiting, + diarrhea Review of Systems See HPI for pertinent positives & negatives. A total of 10 systems reviewed and were otherwise negative. Past Medical & Surgical Medical Problems: (1) 37 weeks gestation of (2) Gestational [-induced] hypertension without significant proteinuria , third trimester (3) related back pain, antepartum Social History Smoking Status: Never Smoker Housing Status: lives with family Occupation Status: employed Current/Historical Medications Scheduled Multivit/Min/Iron/Fol Ac/Pren ( Vitamin), 1 TAB PO DAILY Venlafaxine Hcl (Effexor Extended Rel), 150 MG PO DAILY Allergies Coded Allergies: No Known Allergies (Unverified , 08/27/17) Physical Exam Vital Signs Date Time Temp Pulse Resp B/P (MAP) Pulse Ox O2 Delivery O2 Flow Rate FiO2 08/27/17 15:44 74 20 173/106 99 08/27/17 14:39 91 16 145/89 97 Room Air 08/27/17 11:50 96 20 161/71 100 Room Air 08/27/17 09:37 37.4 101 18 136/100 96 Room Air Physical Exam GENERAL: Sitting up in bed, alert, well appearing, well nourished, no distress, non-toxic EYE EXAM: normal conjunctiva. PERRL and EOM's intact. OROPHARYNX: no exudate, no erythema, lips, buccal mucosa, and tongue normal and mucous membranes are moist NECK: Negative Brudzinski, supple, no nuchal rigidity, no adenopathy, non-tender LUNGS: Clear to auscultation. Normal chest wall mechanics HEART: no murmurs, S1 normal and S2 normal ABDOMEN: abdomen soft, non-tender, normo-active bowel sounds, no masses, no rebound or guarding. BACK: Back is symmetrical on inspection and there is no deformity, no midline tenderness, no CVA tenderness. SKIN: no rashes and no bruising UPPER EXTREMITIES: upper extremities are grossly normal. LOWER EXTREMITIES: No pitting edema. NEURO EXAM: Normal sensorium, cranial nerves II-XII intact, normal speech, no weakness of arms, no weakness of legs. No drift. Finger to nose intact. Sensation intact. Rapid alternating movements of upper extremities intact. Achilles and patellar tendon reflex are 1/4 bilaterally. Medical Decision & Procedures ER Provider Diagnostic Interpretation: Radiology results as stated below per my review and the radiologist's interpretation: HEAD WITHOUT CONTRAST (CT) CLINICAL HISTORY: 27 years-old Female presenting with ? Seizure on right side, vomiting and diarrhea, dizzy, fall without loss of consciousness. TECHNIQUE: Multidetector CT imaging of the head was performed without the use of intravenous contrast. IV contrast: None. A dose lowering technique was used consistent with the principles of ALARA (as low as reasonably achievable). COMPARISON: None. CT DOSE (mGy.cm): The estimated cumulative dose is 537.48 mGy.cm. FINDINGS: Pitch Flaker topogram: Unremarkable. Ventricles and sulci normal in size. Brain parenchyma normal in appearance with preserved barrera-white differentiation. No mass effect or midline shift. No hemorrhage or acute territorial infarct. No extra-axial fluid collection. Paranasal sinuses and mastoid air cells clear. Calvarium intact. IMPRESSION: 1. No acute intracranial abnormality. Electronically signed by: Jorge Ruth M.D. 08/27/2017 11:24 AM Dictated Date/Time: 08/27/2017 11:21 AM CERVICAL SPINE COMBO HISTORY: 27 years-old Female r sided shaking and weakness acute right-sided weakness with arm tingling. COMPARISON: Brain MRI and CT head of same day TECHNIQUE: Multiplanar multisequence MRI of the cervical spine was obtained both with and without the use of 11 mL Gadavist FINDINGS: The large ntgcs-[id number]-ccfl wheelage clerk localizer images demonstrate no gross abnormality. Sagittal STIR images are mildly motion degraded. No acute fracture, subluxation, focal bone marrow or soft tissue edema. Imaged posterior fossa structures are unremarkable. Signal within the cervical spinal cord is within normal limits. No abnormal enhancement identified. Postcontrast and T2 axial images are also moderately motion degraded. No significant intervertebral disc space narrowing or degenerative changes identified. C2-C3: Normal. C3-C4: Normal. C4-C5: Mild uncovertebral spurring without central canal or foraminal narrowing. C5-C6: Mild intervertebral disc space narrowing without central canal or foraminal narrowing. C6-C7: Normal. C7-T1: Normal. The imaged upper thoracic levels are within normal limits. IMPRESSION: 1. Motion degraded exam without acute fracture or subluxation. 2. No significant degenerative changes, central canal or foraminal narrowing. 3. No abnormal enhancement. The above report was generated using voice recognition software. It may contain grammatical, syntax or spelling errors. Electronically signed by: Forest Bragg M.D. 08/27/2017 2:28 PM Dictated Date/Time: 08/27/2017 2:22 PM MRI OF THE BRAIN COMBO CLINICAL HISTORY: Right-sided weakness. COMPARISON STUDY: CT of the brain dated 08/27/2017. TECHNIQUE: MRI of the brain was performed utilizing various T1 and T2-weighted sequences in the axial, sagittal, and coronal planes. Contrast-enhanced sequences were acquired following the administration of 11 cc of Gadavist. FINDINGS: Brain parenchyma: The brain parenchyma is normal in appearance. There is no hemorrhage or mass effect. There is no restricted diffusion to suggest acute ischemia. No enhancing mass lesion is identified on the postcontrast images. Barrera-white matter differentiation is preserved. No extra-axial fluid collection is seen. The cerebellar tonsils are normal in configuration. Ventricles, sulci, and cisterns: Normal in configuration. Pituitary and sella: Unremarkable. Intracranial vasculature: Normal flow voids are maintained at the skull base. Orbits: The bony orbits are grossly intact. Orbital contents are normal in appearance. Sinuses and mastoids: Clear. Calvarium: Unremarkable. Cervical cord: Partially visualized cervical spinal cord is normal in morphology and signal intensity. IMPRESSION: No acute intracranial abnormality. Electronically signed by: Dani Peraza M.D. 08/27/2017 2:16 PM Dictated Date/Time: 08/27/2017 2:12 PM Laboratory Results 08/27/17 10:20 Red Blood Count 4.55, Mean Corpuscular Volume 83.7, Mean Corpuscular Hemoglobin 28.8, Mean Corpuscular Hemoglobin Concent 34.4, Mean Platelet Volume 10.3, Neutrophils (%) (Auto) 82.3, Lymphocytes (%) (Auto) 12.3, Monocytes (%) (Auto) 4.9, Eosinophils (%) (Auto) 0.1, Basophils (%) (Auto) 0.1, Neutrophils # (Auto) 6.58, Lymphocytes # (Auto) 0.98, Monocytes # (Auto) 0.39, Eosinophils # (Auto) 0.01, Basophils # (Auto) 0.01 08/27/17 10:20 Test 08/27/17 09:50 08/27/17 10:20 08/27/17 10:43 Urine Color YELLOW Urine Appearance CLEAR (CLEAR) Urine pH 5.5 (4.5-7.5) Urine Specific [place] 1.021 (1.000-1.030) Urine Protein NEG (NEG) Urine Glucose (UA) NEG (NEG) Urine Ketones TRACE (NEG) Urine Occult Blood NEG (NEG) Urine Nitrite NEG (NEG) Urine Bilirubin NEG (NEG) Urine Urobilinogen NEG (NEG) Urine Leukocyte Esterase TRACE (NEG) Urine WBC (Auto) 1-5 /hpf (0-5) Urine RBC (Auto) 0-4 /hpf (0-4) Urine Hyaline Casts (Auto) 1-5 /lpf (0-5) Urine Epithelial Cells (Auto) 20-30 /lpf (0-5) Urine Bacteria (Auto) NEG (NEG) Urine Test NEG (NEG) White Blood Count 7.99 K/uL (4.8-10.8) Red Blood Count 4.55 M/uL (4.2-5.4) Hemoglobin 13.1 g/dL (12.0-16.0) Hematocrit 38.1 % (37-47) Mean Corpuscular Volume 83.7 fL (80-100) Mean Corpuscular Hemoglobin 28.8 pg (25-34) Mean Corpuscular Hemoglobin Concent 34.4 g/dl (32-36) Platelet Count 294 K/uL (130-400) Mean Platelet Volume 10.3 fL (7.4-10.4) Neutrophils (%) (Auto) 82.3 % Lymphocytes (%) (Auto) 12.3 % Monocytes (%) (Auto) 4.9 % Eosinophils (%) (Auto) 0.1 % Basophils (%) (Auto) 0.1 % Neutrophils # (Auto) 6.58 K/uL (1.4-6.5) Lymphocytes # (Auto) 0.98 K/uL (1.2-3.4) Monocytes # (Auto) 0.39 K/uL (0.11-0.59) Eosinophils # (Auto) 0.01 K/uL (0-0.5) Basophils # (Auto) 0.01 K/uL (0-0.2) RDW Standard Deviation 40.7 fL (36.4-46.3) RDW Coefficient of Variation 13.5 % (11.5-14.5) Immature Granulocyte % (Auto) 0.3 % Immature Granulocyte # (Auto) 0.02 K/uL (0.00-0.02) Anion Gap 10.0 mmol/L (3-11) Est Creatinine Clear Calc Drug Dose 126.3 ml/min Estimated GFR () 109.6 Estimated GFR (Non- 94.6 BUN/Creatinine Ratio 11.5 (10-20) Calcium Level 9.2 mg/dl (8.5-10.1) Total Bilirubin 1.4 mg/dl (0.2-1) Direct Bilirubin 0.3 mg/dl (0-0.2) Aspartate Amino Transf (AST/SGOT) 16 U/L (15-37) Alanine Aminotransferase (ALT/SGPT) 17 U/L (12-78) Alkaline Phosphatase 88 U/L (45-117) Total Protein 8.6 gm/dl (6.4-8.2) Albumin 3.8 gm/dl (3.4-5.0) Lipase 85 U/L (73-393) Lactic Acid Level 1.1 mmol/L (0.4-2.0) Laboratory results per my review. Medications Administered Medications (Trade) Dose Ordered Sig/Jose Maria Route Start Time Stop Time Status Last Admin Dose Admin Sodium Chloride 1,000 ml @ 999 mls/hr Q1H1M STAT IV 08/27/17 09:59 08/27/17 10:59 DC 08/27/17 10:34 999 MLS/HR ECG Indication: weakness Rate (beats per minute): 96 Rhythm: sinus rhythm Findings: no ectopy, other (Normal axis. Normal intervals) ED Course ED COURSE: Vital signs were reviewed and showed tachycardia The patients medical record was reviewed The above diagnostic studies were performed and reviewed. ED treatments and interventions as stated above. 0941: The patient was evaluated in room C2. A complete history and physical examination was performed. 0959: Sodium Chloride 1000 ml @ 999 mls/hr IV 1128: I reevaluated the patient, and she was feeling better. 1141: I discussed the patient's case with Dr. Solis, Neurology, and he recommends getting an MRI of the brain and neck with and without. 1158: I updated her on the treatment plan. 1529: Upon reevaluation, the patient is doing well and feeling better.I discussed my findings with the patient and she understands and agrees with the treatment plan. Based on the patients age, coexisting illnesses, exam and lab findings the decision to treat as an outpatient was made. The patient remained stable while under my care. The patient appeared well at the time of discharge. Medical Decision Differential Diagnosis includes but is not limited to ischemic Stroke, hemorrhagic stroke, bells palsy, mass, neoplasm, migraine headache, seizure, subarachnoid hemorrhage, TIA, and transient global amnesia. Patient is a 27-year-old female who presents to ER for initially shaking in her bilateral lower extremities which was uncontrolled. She was awake during this whole time.. Later she had shaking in her right upper and right lower extremity. She is a faint headache. Headache came on gradually. No signs meningitis or encephalitis. Patient's completely neurologically intact on my exam. Reflexes are intact. No signs of GBS. CT head was negative. CBC along with BMP was fairly unremarkable with exception of a mild hypokalemia at 3.4. T bili 1.4. LFTs and lipase is normal. Lactic acid was 1.1. Nausea, vomiting and diarrhea have completely resolved. Potassium isn't low enough to cause symptoms. Do not believe consistent with seizure. Nothing to suggest stroke. MRI of brain and cervical spine was completely normal. This was performed following discussion with neurology. Neurologically I feel that this was most likely have to be a cervical lesion of difficult to explain her symptoms. With the negative MRI patient was updated bedside. She was completely back to her baseline. She was discharged to follow-up with PCP and neurology as an outpatient. Discussed with Pt concerning signs and symptoms to watch out for. Pt was instructed to follow up with their PCP and discussed with the patient their option to return to the ED at anytime for persistent or worsening symptoms. The appropriate anticipatory guidance and out-patient management, including indications for return to the emergency department, were explained at length to the patient and understood. Medication Reconcilliation Current Medication List: was personally reviewed by me Blood Pressure Screening Patient's blood pressure: Normal blood pressure Consults Time Called: 1139 Consulting Physician: Dr. Solis, Neurology Returned Call: 1141 I discussed the patient's case with Dr. Solis, Neurology, and he recommends getting an MRI of the brain and neck with and without. Impression Primary Impression: Weakness Additional Impression: Twitching Scribe Attestation The scribe's documentation has been prepared under my direction and personally reviewed by me in its entirety. I confirm that the note above accurately reflects all work, treatment, procedures, and medical decision making performed by me. Departure Information Dispostion Home / Self-Care Referrals No Doctor, Assigned (PCP) Forms HOME CARE DOCUMENTATION FORM, IMPORTANT VISIT INFORMATION Patient Instructions ED Weakness Yeni COOPER [facility] Additional Instructions Please follow up with your primary care doctor with in the next 24 hours. Any worsening of your symptoms, please return to the ED immediately. This includes any fevers greater than 100.4, worsening pain, chest pain, shortness breath, persistent nausea, vomiting, unable to eat or drink, or any other concerning signs or symptoms from your standpoint. Absolutely no driving for the next 24 hours. Please follow up with neurology. Problem Qualifiers
== END 2017-08-27 15:46 | disposition home or self-care (01) ==
LOC: C.EDB 09:35 → C.EDC 15:46
DX: R53.1 Weakness (principal); R25.3 Fasciculation

== ENCOUNTER → 2018-04-09 | Outpatient (CLI) | payer OTHER ==
[~2018-04-09] MED LIST changes: -OXYC-57 PO
== END | disposition home or self-care (01) ==
LOC: C.LAB1850 15:50
PROVIDERS: ATTEND Nurse Practitioner
DX: Z00.00 Encounter for general adult medical examination without abnormal findings (principal)

== ENCOUNTER 2019-04-02 16:21 | Inpatient (IN) ==
[2019-04-02 17:04] LABS: Basophils # (auto) 0.01 K/uL (0-0.2); Basophils % (auto) 0.1 %; Eosinophils # (auto) 0.01 K/uL (0-0.5); Eosinophils % (auto) 0.1 %; Hematocrit (blood only) 33.7 % (37-47); Hemoglobin 11.2 g/dL (12.0-16.0); Immature Granulocytes # (auto) 0.03 K/uL (0.00-0.02); Immature Granulocytes % (auto) 0.4 %; Lymphocytes # (auto) 1.85 K/uL (1.2-3.4); Lymphocytes % (auto) 22.3 %; Mean Corpuscular Volume 83.6 fL (80-100); Mean Platelet Volume 12.2 fL (7.4-10.4); Monocytes # (auto) 0.42 K/uL (0.11-0.59); Monocytes % (auto) 5.1 %; Neutrophils # (auto) 5.98 K/uL (1.4-6.5); Platelet Count 201 K/uL (130-400); RDW Coefficient of Variation 13.5 % (11.5-14.5); RDW Standard Deviation 40.2 fL (36.4-46.3); Red Blood Count 4.03 M/uL (4.2-5.4)
[2019-04-02 17:25] LABS: Albumin Level 2.3 gm/dl (3.4-5.0); BUN Creatinine Ratio 13.1 (10-20); Calcium 8.5 mg/dl (8.5-10.1); Creatinine Clr Calc Pharmacy 161.6 ml/min; Est GFR (African American) 136.7; Est GFR (Non-African American) 117.9; Potassium 3.8 mmol/L (3.5-5.1)
[2019-04-02 17:28] LABS: Albumin Globulin Ratio 0.5 (0.9-2); Bilirubin,Total 0.4 mg/dl (0.2-1); Globulin 4.4 gm/dl (2.5-4.0); Total Protein 6.7 gm/dl (6.4-8.2)
[2019-04-02 17:44] LABS: Mean Corpuscular Hgb Conc 33.2 g/dL (32-36)
[2019-04-02] MEDS: VENLAFAXINE HCL XR 150 MG CAPXR PO SCH (17:44)
[2019-04-02] MEDS ORDERED: LABETALOL HCL IV 5 MG/ML 20ML IV STA (18:26)
--- NOTE | 2019-04-02 18:51 | History & Physical Report ---
Date of Service April 02, 2019 Assessment & Plan (1) Gestational [-induced] hypertension without significant protein uria, third trimester: 29yo at 37.3 weeks GA. Patient present for PIH eval for elevated BPs and proteinuria noted in clinic today. 1. Fetus: Cat 1 2. PIH: Patient meets criteria for gestational HTN. Persistently elevated BPs since arrival. Urine protein/ creatinine pending. Labs otherwise unremarkable. Denies PIH symptoms. Recommended delivery with for gestational hypertension at term. Discussed treating persistent severe range BPs and possibility of Mg. Will proceed with repeat LTCS for prior Hx of x2 (2) 37 weeks gestation of : History of Present Illness Primary Care Provider: Manisha Peoples MD 29yo at 37.3 weeks GA. Patient present for PIH eval for elevated BPs and proteinuria noted in clinic today. Patient denies PIH symptoms. Denies any regular contractions, VB, LOF. Reports Good FM. Patient has prior Hx of gestational HTN. BMI 48. Hx LTCS x2 Allergies Allergy/AdvReac Type Severity Reaction Status Date / Time No Known Allergies Allergy Unverified 08/27/17 10:48 Home Medications Home Medications Medication Instructions Recorded Confirmed Type venlafaxine ER 150 mg 150 mg PO DAILY #30 cap 04/01/19 04/02/19 Rx capsule,extended release 24 hr PNV cmb#95-ferrous fumarate-FA 1 tab PO DAILY 04/02/19 04/02/19 History [] aspirin 81 mg PO DAILY 04/02/19 04/02/19 History Patient History Surgical History History of section Family History Grandmother (Maternal) Family history of diabetes mellitus Hypertension Mother Hypertension Aunt Cancer Social History Preferred Language: Luxembourgish marital status: Feels Safe at Home: Yes Safety Concerns: Feels Safe At This Time Smoking Status: Former smoker Second Hand Exposure: Yes (occassionally) Hx Alcohol Use: Yes Alcohol type: beer, wine and hard liquor Hx Substance Use: No Physical Exam Gastrointestinal (Abdomen): Inspection/Auscultation: abdomen normal to inspection Percussion/Palpation: abdomen soft; abdomen nontender Neurologic: deep tendon reflexes 2+ bilaterally Genitourinary: OB Exam Monitor Tracing: + external FHT monitor used and + category I Results & Data Vital Signs (Past 12 Hours) Vital Signs Pulse BP 04/02/19 18:49 70 170/89 H 04/02/19 18:40 82 162/89 H 04/02/19 18:30 75 148/81 H 04/02/19 18:19 66 166/99 H 04/02/19 18:09 78 164/96 H 04/02/19 18:01 76 166/101 H 04/02/19 17:49 78 150/98 H 04/02/19 17:41 75 154/103 H 04/02/19 17:30 75 160/102 H 04/02/19 17:20 82 178/108 H 04/02/19 17:09 83 157/99 H 04/02/19 17:01 88 143/105 H 04/02/19 16:49 87 147/101 H 04/02/19 16:38 94 H 144/100 H
[2019-04-02] MEDS ORDERED: LACTATED RINGER'S 1,000 ML IV SCH ×3 (19:00→22:09)
[2019-04-02] MEDS ORDERED: CITRIC ACID/SODIUM CITRATE 15 ML UDC PO SCH (19:00)
[2019-04-02] MEDS ORDERED: CEFAZOLIN 3000MG 65 ML IV SCH (19:00)
--- NOTE | 2019-04-02 19:55 | Anesthesiology Consultation ---
Date of Service April 02, 2019 Assessment & Plan Chart Review Chart Review: Acceptable Risk for Surgery and Patient NOT seen in Pre Admission Testing Consults Requested none ASA [id number] Proposed Anesthesia Anesthesia Type: General and Spinal Anesthesia Line Insertion: Pulmonary Artery Catheter, OH and other History Surgery Operation Date: 04/02/19 20:30 Proposed Procedures p Section in LD - Jairo Butler MD Height/Weight Height: 5 ft 5 in Weight: 128.367 kg Allergies Allergy/AdvReac Type Severity Reaction Status Date / Time No Known Allergies Allergy Unverified 08/27/17 10:48 Medications Home Medications Medication Instructions Recorded Confirmed Last Taken venlafaxine ER 150 mg 150 mg PO DAILY #30 cap 04/01/19 04/02/19 03/31/19 14:30 capsule,extended release 24 hr PNV cmb#95-ferrous fumarate-FA 1 tab PO DAILY 04/02/19 04/02/19 03/31/19 14:00 [] aspirin 81 mg PO DAILY 04/02/19 04/02/19 03/31/19 14:00 Active Medications Generic Name Dose Route Start Last Admin Trade Name Freq PRN Reason Stop Dose Admin Citric Acid/Sodium Citrate 30 ml 04/02/19 19:00 04/02/19 19:50 Bicitra PO 04/02/19 23:00 30 ml PREOP MADDI Administration Lactated Ringer's 1,000 mls @ 999 mls/hr 04/02/19 19:00 04/02/19 19:14 Lr IV 04/02/19 20:00 999 mls/hr .[id number] MADDI Administration Venlafaxine HCl 150 mg 04/02/19 17:00 04/02/19 17:44 Effexor Extended Release PO 05/02/19 16:59 150 mg QAM MADDI Administration NPO Date Last Intake of Fluids: 04/02/19 Time Last Intake of Fluids: 02:00 Date Last Intake of Solids: 04/02/19 Time Last Intake of Solids: 02:00 Past Medical History Medical History Anemia GERD (gastroesophageal reflux disease) Morbid obesity PIH ( induced hypertension) Exercise / Class Metabolic Activity III < 4 Walking/Shop/Light housework Past Family History Family History Grandmother (Maternal) Family history of diabetes mellitus Hypertension Mother Hypertension Aunt Cancer Past Surgical History Surgical History History of section Past Anesthesia History No Hx of Anesthesia Complications and No Family Hx of Anesthesia Complications History of PONV No Hx of PONV and No Hx of Motion Sickness Social History Smoking Status: Former smoker Hx Alcohol Use: Yes Alcohol type: beer, wine and hard liquor alcohol intake frequency: holidays/special occasions only Hx Substance Use: No substance use type: does not use Physical Exam Vital Signs Last Vital Signs Temp 37.0 C 04/02/19 19:15 Pulse 78 04/02/19 19:40 Resp 18 04/02/19 19:15 BP 122/68 04/02/19 19:40 Constitutional + morbidly obese ENMT Mouth: no dentition abnormality Thyromental Distance: > or= 3.5 Finger Breadths Mallampati Class: II Neck normal visual inspection and trachea midline; neck extension not limited Respiratory normal respiratory effort Auscultation: lungs clear to auscultation bilaterally Cardiovascular Rate/Rhythm: regular rate and regular rhythm Heart Sounds: no murmur Musculoskeletal Spine: lumbar spine normal to inspection; normal cervical ROM Neurologic moves all extremities Motor/Sensory: no sensory deficit Psychiatric Orientation: alert and oriented x 3 Testing Laboratory Results 04/02/19 16:54 04/02/19 16:54
[2019-04-02] MEDS ORDERED: fentaNYL citrate 100 MCG/2 ML VIAL ONE (20:02)
[2019-04-02] MEDS ORDERED: MoRPHine SULFATE PF 1 MG/ML 10 ML AMP/VIAL ONE (20:04)
[2019-04-02] MEDS ORDERED: OXYTOCIN 10 UNITS/ML VIAL ONE ×2 (20:50→21:19)
--- NOTE | 2019-04-02 21:48 | Post Operative Brief Note ---
Immediate Post Op Note v1 Date of Surgery April 02, 2019 Pre & Post Diagnosis Operation Date: 04/02/19 20:30 Pre-Op Diagnosis: 1. Gestational hypertension at term Post-Op Diagnosis: 1. Gestational hypertension at term 2. Lower uterine transverse incision 3. Delivery of live male child at 2101 Procedure Operation Date: 04/02/19 20:30 Actual Procedures p Section in LD - Jairo Butler MD EBL: 600mL Complications: None Surgeon Jairo Butler MD Speech Correction Assistant None Estimated Blood Loss 600 Findings Consistent with Post-Op Diagnosis Drains Marin Catheter
[2019-04-02] MEDS ORDERED: LACTATED RINGER'S 500 ML IV PRN (21:56)
[2019-04-02] MEDS ORDERED: KETOROLAC 30 MG/ML VIAL IV PRN (21:56)
[2019-04-02] MEDS ORDERED: DiphenhydrAMINE HCL 50 MG/ML VIAL IV PRN (21:56)
[2019-04-02] MEDS ORDERED: NALOXONE HCL 1 MG in SODIUM CHLORIDE 0.9% 1000ML 1,000 ML IV PRN (21:56)
[2019-04-02] MEDS ORDERED: PROMETHAZINE HCL 25 MG in SODIUM CHLORIDE 0.9% 50 ML IV PRN ×2 (21:56→22:09)
[2019-04-02] MEDS ORDERED: ePHEDrine sulfate 50 MG/ML AMP IV PRN (21:56)
[2019-04-02] MEDS ORDERED: MoRPHine SULFATE PF 1 MG/ML 10 ML AMP/VIAL INT SPINAL ONE (21:56)
[2019-04-02] MEDS ORDERED: ONDANSETRON INJ 2 MG/ML 2 ML VIAL IV PRN (21:56)
[2019-04-02] MEDS ORDERED: NALOXONE HCL 0.08 MG in SYRINGE 1.8 ML IV PRN (21:56)
[2019-04-02] MEDS ORDERED: NALOXONE HCL 0.4 MG/1 ML VIAL/CARP IV PRN (21:56)
[2019-04-02] MEDS ORDERED: DC INTRASPINAL MORPHINE SCH (22:00)
[2019-04-02] MEDS ORDERED: NO NARCOTICS OR SEDATIVES SCH (22:00)
[2019-04-02] MEDS ORDERED: SODIUM CHLORIDE 0.9% 1000ML 1,000 ML IV SCH (22:00)
[2019-04-02] MEDS ORDERED: MAGNESIUM HYDROXIDE SUSP 30 ML UDC PO PRN (22:09)
[2019-04-02] MEDS ORDERED: SUPERCREAM 0.870% 15 GM JAR EXT PRN (22:09)
[2019-04-02] MEDS ORDERED: SENNA 8.6 MG TAB PO PRN (22:09)
[2019-04-02] MEDS ORDERED: BENZOCAINE 20% AER SPR 82.5 GM CAN EXT PRN (22:09)
[2019-04-02] MEDS ORDERED: HYDROCORTISONE ACETATE 25 MG SUPP PR PRN (22:09)
[2019-04-02] MEDS ORDERED: ONDANSETRON INJ 2 MG/ML 2 ML VIAL ONE (22:53)
--- NOTE | 2019-04-02 23:57 | Operative Report ---
DATE OF OPERATION: 04/02/2019 PROCEDURE: Repeat low transverse section. SURGEON: Jairo Butler MD MENAGERIE SUPERINTENDENT: Dr. Renita Kohli. PREOPERATIVE DIAGNOSES: 1. Single intrauterine at 37 weeks 1 day gestational age. 2. Gestational hypertension diagnosed today. 3. Morbid obesity. 4. Prior history of gestational hypertension. 5. History of prior section x2. POSTOPERATIVE DIAGNOSES: 1. Single intrauterine at 37 weeks 1 day gestational age. 2. Gestational hypertension diagnosed today. 3. Morbid obesity. 4. Prior history of gestational hypertension. 5. History of prior section x2. 6. Status post delivery. ESTIMATED BLOOD LOSS: 600 mL. DRAINS: Marin. FLUIDS: Continuous lactated ringer. URINE OUTPUT: Pending. COMPLICATIONS: None. FINDINGS: There is noted to be a viable with weight and Apgars currently pending. There was noted to be extensive thick scar tissue throughout the subcutaneous layers continuing to the fascia. The fascia was noted to have significant scar tissue thickening extending quite laterally. There was noted to be quite extensive scar tissue in the midline which made entry into the abdomen somewhat difficult. Once inside the abdomen, there was noted to be minimal scar tissue or adhesions present. Head of the were noted to be cephalic. INDICATIONS: Ms. Griffin is a 29-year-old G4, P2-0-1-2, presented for evaluation for preeclampsia secondary to elevated blood pressures in clinic. Upon presentation, she was noted to be persistently mild range with occasional severe range blood pressures. Labs were unremarkable. The patient was reported to be asymptomatic. Urine protein is currently pending. The patient has a history of a prior section x2. Due to the persistently elevated blood pressures, the patient was diagnosed with gestational hypertension being that she was at 37 weeks. We discussed the recommendation for delivery. The patient was amiable to this plan. Due to her history of 2 prior C-sections, the plan was to proceed with a repeat low transverse section. The patient declined tubal ligation. DESCRIPTION OF PROCEDURE: The patient was taken to the operating room after consents were ensured. Upon presentation, she was properly identified. Spinal anesthesia was obtained without difficulty. The patient was then placed in dorsal lithotomy position with left lateral tilt. A Marin was then placed and the patient was then prepped and draped in normal sterile fashion. A preprocedural timeout was performed. A Pfannenstiel incision was then made at the prior location with a knife. This was carried down to underlying fascia with the Bovie. The fascia was nicked at the midline with a knife. The fascia was then extended laterally with pickups and Anderson scissors in each direction. The superior aspect of the fascia was grasped with Kochers x2, elevated off the underlying rectus muscles using blunt dissection and the knife. The inferior aspect of the fascia was then grasped with Kochers x2, elevated off the underlying fascia with Anderson scissors. There was noted to be a small midline defect which was able to fit one finger through and a sweep of the abdomen was noted to be free of adhesions. There was noted to be significant thickening due to scar tissue at the midline which did make entry somewhat difficult initially. The midline was then entered bluntly. The abdomen was placed on stretch to allow room for delivery. The head of the was noted to be in cephalic position. The bladder flap was created in the normal fashion. A low transverse uterine incision was then made with a knife. This was then extended laterally with stretch. The head of the was then brought to the hysterotomy without significant difficulty and was delivered through the hysterotomy. Body and shoulders quickly followed. The was noted to be vigorous soon after delivery. Cord was double clamped and cut. was handed off to the waiting nursery staff. Cord blood was then obtained. Attention was then turned to delivery of the placenta which was delivered intact 3-vessel cord with a true knot noted. The uterus was then exteriorized. Several passes were made inside to remove any remaining membranes with a wet lap. The hysterotomy was then closed with 0 Vicryl and continuous running locked suture in a single layer. There was noted to be excellent hemostasis. The posterior cul-de-sac was cleaned of clots and debris. The uterus was then returned to the maternal abdomen. Right and left pericolic gutters were then cleaned of clots and debris and the hysterotomy was then reinspected and noted to be hemostatic. The fascia, muscle and subcutaneous layers were inspected and noted to be hemostatic. The fascia was then closed starting at the lateral borders in each direction continued to the midline with 0 Vicryl. The subcutaneous layers were reapproximated with 2-0 plain in an interrupted stitch and the skin was closed with 3-0 Vicryl on a Seth needle. Dermabond was placed on top. Needle, sponge and instrument counts were correct at the completion of the case. I attest to the content of the Intraoperative Record and any orders documented therein. Any exceptions are noted below. MTDD
[2019-04-03] MEDS: OXYTOCIN 20 UNITS in LACTATED RINGER'S 1,000 ML IV SCH ×2 (00:40→09:10)
[2019-04-03] MEDS: NALBUPHINE HCL INJ 10 MG/ML AMP IV PRN ×2 (00:45→03:58)
--- NOTE | 2019-04-03 00:48 | Anesthesiology Progress Note ---
Date of Service April 03, 2019 Anesthesia Post Procedure Vital Signs Vital Signs: Temp Pulse Resp BP Pulse Ox 04/03/19 00:17 72 98 04/03/19 00:12 92 H 97 04/03/19 00:07 70 95 04/03/19 00:05 69 147/83 H 04/03/19 00:02 72 99 04/02/19 23:57 67 98 04/02/19 23:55 67 146/75 H 04/02/19 23:52 76 98 04/02/19 23:47 95 H 100 04/02/19 23:45 71 134/81 04/02/19 23:42 61 100 04/02/19 23:37 75 100 04/02/19 23:35 86 142/90 H 04/02/19 23:32 80 99 04/02/19 23:30 18 04/02/19 23:27 77 97 04/02/19 23:25 71 149/88 H 04/02/19 23:22 78 98 04/02/19 23:17 73 100 04/02/19 23:15 73 149/77 H 04/02/19 23:12 68 100 04/02/19 23:07 79 99 04/02/19 23:05 71 155/91 H 04/02/19 23:02 91 H 100 04/02/19 23:00 18 04/02/19 22:57 77 152/82 H 97 04/02/19 22:55 68 173/108 H 04/02/19 22:52 76 100 04/02/19 22:50 64 18 156/77 H 04/02/19 22:47 65 100 04/02/19 22:46 76 169/98 H 04/02/19 22:42 66 100 04/02/19 22:40 18 04/02/19 22:37 74 100 04/02/19 22:35 79 149/92 H 04/02/19 22:32 76 99 04/02/19 22:30 18 04/02/19 22:27 75 100 04/02/19 22:25 67 160/100 H 04/02/19 22:22 74 97 18 22:20 18 04/02/19 22:17 70 99 04/02/19 22:16 74 154/100 H 04/02/19 22:15 69 163/97 H 07/18/19 22:12 80 98 /18/19 22:10 18 /18/19 22:07 79 97 /18/19 22:05 67 138/92 93 /18/19 22:02 76 94 /18/19 22:00 36.5 C 18 /18/19 21:59 78 93 /18/19 21:57 69 100 18/19 20:25 68 143/103 H 18/19 20:10 77 141/76 H 18/19 20:00 80 142/80 H 18/19 19:57 78 151/97 H 18/19 19:40 78 122/68 /18/19 19:29 79 126/74 18/19 19:19 82 126/67 18/19 19:17 85 133/71 18/19 19:15 37.0 C 18 /18/19 19:01 76 198/96 H 07/18/19 18:49 70 170/89 H 0718/19 18:40 82 162/89 H 07/18/19 18:30 75 148/81 H 07/18/19 18:19 66 166/99 H 07/18/19 18:09 78 164/96 H 07/18/19 18:01 76 166/101 H 07/18/19 17:49 78 150/98 H 07/18/19 17:41 75 154/103 H 07/18/19 17:30 75 160/102 H 07/18/19 17:20 82 178/108 H 07/18/19 17:09 83 157/99 H 07/18/19 17:01 88 143/105 H 07/18/19 16:49 37.1 C 87 18 147/101 H 07/18/19 16:38 94 H 144/100 H Transfer of Care Handoff Completed per policy Notes Mental Status: alert / awake / arousable Patient Amnestic to Procedure: Yes Nausea / Vomiting: adequately controlled Pain: adequately controlled Airway Patency, RR, SpO2: stable & adequate BP & HR: stable & adequate Hydration State: stable & adequate Neuraxial Anesthesia: was administered and sensory block is resolving Anesthetic Complications: no major complications apparent
[2019-04-03] MEDS ORDERED: NIFEdipine 10 MG CAP PO STA (04:16)
[2019-04-03] MEDS ORDERED: NIFEdipine 10 MG CAP ONE (04:28)
--- NOTE | 2019-04-03 05:47 | Obstetrical Progress Note ---
Date of Service <Baldev Espinoza MD - Last Filed: 04/03/19 08:19> April 03, 2019 Assessment & Plan <Baldev Espinoza MD - Last Filed: 04/03/19 08:19> Day #:: 1 ([29 y/o s/p C/S @ 37+3 complicated by gestational HTN] - POD#1 - Blood Type O+ - Feels well today. Clear liquids, caemron in place. - Pain well controlled. - Routine post care - After discharge will have [address] Butler.) Subjective <Baldev Espinoza MD - Last Filed: 04/03/19 08:19> Ambulation: limited ambulation (has not ambulated yet) Voiding: cameron catheter in place Passing Gas:: No Diet Tolerance:: clear liquids Feeding Type:: breast feeding (milk has not come in yet) Current Pain Level(1-10): 1 States that she is itchy from the anesthesia and that she was having chills. Physical Exam <Baldev Espinoza MD - Last Filed: 04/03/19 08:19> OB PE General: Alert, oriented. No acute distress. Cardiac: Regular rate and rhythm, no murmurs/rubs/gallops. Respiratory: Clear to auscultation anterior and posteriorly, no wheezes/rales/rhonchi. No increased work of breathing. Symmetrical chest rise. No respiratory distress. Abdomen: Soft, nondistended, no redness or swelling. Uterus: Uterine fundus firm, palpable at the umbilicus. Lower Extremities: No lower extremity edema or swelling. No deep calf pain. Paris's negative bilaterally. OB ROS Denies fever, sweats Denies shortness of breath, difficulty breathing, chest pain, palpitations, chest pressure. Denies breast pain. Denies dysuria (last headache was hours ago) Denies headache. Results & Data <Baldev Espinoza MD - Last Filed: 04/03/19 08:19> Vital Signs (Past 12 Hours) Vital Signs Temp Pulse Resp BP Pulse Ox 04/03/19 05:13 16 98 04/03/19 04:55 132/91 04/03/19 04:20 157/109 H 04/03/19 04:00 16 164/105 H 98 07/19/19 03:45 36.7 C 86 18 166/101 H 98 04/03/19 03:00 16 100 04/03/19 02:00 18 98 04/03/19 01:00 16 98 04/03/19 00:52 36.9 C 18 04/03/19 00:35 36.9 C 72 18 147/83 H 100 04/03/19 00:30 18 100 04/03/19 00:17 72 98 04/03/19 00:12 92 H 97 04/03/19 00:07 70 95 04/03/19 00:05 69 147/83 H 04/03/19 00:02 72 99 04/02/19 23:57 67 98 04/02/19 23:55 67 146/75 H 04/02/19 23:52 76 98 04/02/19 23:47 95 H 100 04/02/19 23:45 71 134/81 04/02/19 23:42 61 100 04/02/19 23:37 75 100 04/02/19 23:35 86 142/90 H 04/02/19 23:32 80 99 04/02/19 23:30 18 04/02/19 23:27 77 97 04/02/19 23:25 71 149/88 H 04/02/19 23:22 78 98 04/02/19 23:17 73 100 04/02/19 23:15 73 149/77 H 04/02/19 23:12 68 100 04/02/19 23:07 79 99 04/02/19 23:05 71 155/91 H 04/02/19 23:02 91 H 100 04/02/19 23:00 18 04/02/19 22:57 77 152/82 H 97 04/02/19 22:55 68 173/108 H 04/02/19 22:52 76 100 1819 22:50 64 18 156/77 H 04/02/19 22:47 65 100 1819 22:46 76 169/98 H 1819 22:42 66 100 1819 22:40 18 18 22:37 74 100 1819 22:35 79 149/92 H 04/02/19 22:32 76 99 18/19 22:30 18 04/02/19 22:27 75 100 04/02/19 22:25 67 160/100 H 04/02/19 22:22 74 97 04/02/19 22:20 18 04/02/19 22:17 70 99 04/02/19 22:16 74 154/100 H 04/02/19 22:15 69 163/97 H 04/02/19 22:12 80 98 04/02/19 22:10 18 04/02/19 22:07 79 97 04/02/19 22:05 67 138/92 93 04/02/19 22:02 76 94 04/02/19 22:00 36.5 C 18 04/02/19 21:59 78 93 04/02/19 21:57 69 100 04/02/19 20:25 68 143/103 H 04/02/19 20:10 77 141/76 H 04/02/19 20:00 80 142/80 H 04/02/19 19:57 78 151/97 H 04/02/19 19:40 78 122/68 04/02/19 19:29 79 126/74 04/02/19 19:19 82 126/67 04/02/19 19:17 85 133/71 04/02/19 19:15 37.0 C 18 04/02/19 19:01 76 198/96 H 04/02/19 18:49 70 170/89 H 04/02/19 18:40 82 162/89 H 04/02/19 18:30 75 148/81 H 04/02/19 18:19 66 166/99 H 04/02/19 18:09 78 164/96 H 04/02/19 18:01 76 166/101 H 04/02/19 17:49 78 150/98 H <Renita Kohli MD, FACOG - Last Filed: 04/03/19 08:28> Co-Signing Physician Notes Resident Physician Supervision Note: I interviewed and examined the patient. Discussed with Dr. Espinoza and agree with findings and plan as documented in the note. Any exceptions or clarifications are listed here: Doing well, postop day 0. will continue to watch blood pressures closely. Documented By: Renita Kohli MD, FACOG
--- NOTE | 2019-04-03 07:05 | Obstetrical Progress Note ---
Date of Service April 03, 2019 Results & Data Vital Signs (Past 12 Hours) Vital Signs Temp Pulse Resp BP Pulse Ox 04/03/19 06:00 16 97 04/03/19 05:13 16 98 04/03/19 04:55 132/91 04/03/19 04:20 157/109 H 04/03/19 04:00 16 164/105 H 98 04/03/19 03:45 36.7 C 86 18 166/101 H 98 04/03/19 03:00 16 100 04/03/19 02:00 18 98 04/03/19 01:00 16 98 04/03/19 00:52 36.9 C 18 04/03/19 00:35 36.9 C 72 18 147/83 H 100 04/03/19 00:30 18 100 04/03/19 00:17 72 98 04/03/19 00:12 92 H 97 04/03/19 00:07 70 95 04/03/19 00:05 69 147/83 H 04/03/19 00:02 72 99 04/02/19 23:57 67 98 04/02/19 23:55 67 146/75 H 04/02/19 23:52 76 98 04/02/19 23:47 95 H 100 04/02/19 23:45 71 134/81 04/02/19 23:42 61 100 04/02/19 23:37 75 100 04/02/19 23:35 86 142/90 H 04/02/19 23:32 80 99 04/02/19 23:30 18 04/02/19 23:27 77 97 04/02/19 23:25 71 149/88 H 04/02/19 23:22 78 98 04/02/19 23:17 73 100 04/02/19 23:15 73 149/77 H 04/02/19 23:12 68 100 04/02/19 23:07 79 99 04/02/19 23:05 71 155/91 H 04/02/19 23:02 91 H 100 04/02/19 23:00 18 04/02/19 22:57 77 152/82 H 97 04/02/19 22:55 68 173/108 H 04/02/19 22:52 76 100 04/02/19 22:50 64 18 156/77 H 07/18/19 22:47 65 100 04/02/19 22:46 76 169/98 H 04/02/19 22:42 66 100 04/02/19 22:40 18 04/02/19 22:37 74 100 04/02/19 22:35 79 149/92 H 04/02/19 22:32 76 99 04/02/19 22:30 18 04/02/19 22:27 75 100 04/02/19 22:25 67 160/100 H 04/02/19 22:22 74 97 04/02/19 22:20 18 04/02/19 22:17 70 99 04/02/19 22:16 74 154/100 H 04/02/19 22:15 69 163/97 H 04/02/19 22:12 80 98 04/02/19 22:10 18 04/02/19 22:07 79 97 04/02/19 22:05 67 138/92 93 04/02/19 22:02 76 94 04/02/19 22:00 36.5 C 18 04/02/19 21:59 78 93 04/02/19 21:57 69 100 04/02/19 20:25 68 143/103 H 04/02/19 20:10 77 141/76 H 04/02/19 20:00 80 142/80 H 04/02/19 19:57 78 151/97 H 04/02/19 19:40 78 122/68 18/ 19:29 79 126/74 18 19:19 82 126/67 18/19 19:17 85 133/71 04/02/19 19:15 37.0 C 18
[2019-04-03 07:16] LABS: Basophils # (auto) 0.01 K/uL (0-0.2); Basophils % (auto) 0.1 %; Eosinophils # (auto) 0.01 K/uL (0-0.5); Eosinophils % (auto) 0.1 %; Hematocrit (blood only) 33.3 % (37-47); Immature Granulocytes # (auto) 0.03 K/uL (0.00-0.02); Immature Granulocytes % (auto) 0.3 %; Lymphocytes # (auto) 2.16 K/uL (1.2-3.4); Lymphocytes % (auto) 18.2 %; Mean Corpuscular Volume 82.8 fL (80-100); Monocytes # (auto) 0.55 K/uL (0.11-0.59); Monocytes % (auto) 4.6 %; Neutrophils # (auto) 9.08 K/uL (1.4-6.5); Neutrophils % (auto) 76.7 %; Platelet Count 171 K/uL (130-400); RDW Coefficient of Variation 13.6 % (11.5-14.5); RDW Standard Deviation 40.2 fL (36.4-46.3); Red Blood Count 4.02 M/uL (4.2-5.4); White Blood Count 11.84 K/uL (4.8-10.8)
--- NOTE | 2019-04-03 08:25 | Anesthesiology Progress Note ---
Date of Service April 03, 2019 Anesthesia Post Procedure Vital Signs Vital Signs: Temp Pulse Resp BP Pulse Ox 04/03/19 06:00 16 97 04/03/19 05:13 16 98 04/03/19 04:55 132/91 04/03/19 04:20 157/109 H 04/03/19 04:00 16 164/105 H 98 04/03/19 03:45 36.7 C 86 18 166/101 H 98 04/03/19 03:00 16 100 04/03/19 02:00 18 98 04/03/19 01:00 16 98 04/03/19 00:52 36.9 C 18 04/03/19 00:35 36.9 C 72 18 147/83 H 100 04/03/19 00:30 18 100 04/03/19 00:17 72 98 04/03/19 00:12 92 H 97 04/03/19 00:07 70 95 04/03/19 00:05 69 147/83 H 04/03/19 00:02 72 99 04/02/19 23:57 67 98 04/02/19 23:55 67 146/75 H 04/02/19 23:52 76 98 04/02/19 23:47 95 H 100 04/02/19 23:45 71 134/81 04/02/19 23:42 61 100 04/02/19 23:37 75 100 04/02/19 23:35 86 142/90 H 04/02/19 23:32 80 99 04/02/19 23:30 18 04/02/19 23:27 77 97 04/02/19 23:25 71 149/88 H 04/02/19 23:22 78 98 04/02/19 23:17 73 100 04/02/19 23:15 73 149/77 H 04/02/19 23:12 68 100 04/02/19 23:07 79 99 04/02/19 23:05 71 155/91 H 04/02/19 23:02 91 H 100 04/02/19 23:00 18 04/02/19 22:57 77 152/82 H 97 04/02/19 22:55 68 173/108 H 04/02/19 22:52 76 100 04/02/19 22:50 64 18 156/77 H 04/02/19 22:47 65 100 07/18/19 22:46 76 169/98 H 07/18/19 22:42 66 100 07/18/19 22:40 18 07/18/19 22:37 74 100 07/18/19 22:35 79 149/92 H 07/18/19 22:32 76 99 07/18/19 22:30 18 07/18/19 22:27 75 100 07/18/19 22:25 67 160/100 H 07/18/19 22:22 74 97 07/18/19 22:20 18 07/18/19 22:17 70 99 07/18/19 22:16 74 154/100 H 07/18/19 22:15 69 163/97 H 07/18/19 22:12 80 98 07/18/19 22:10 18 07/18/19 22:07 79 97 18/19 22:05 67 138/92 93 /18/19 22:02 76 94 07/18/19 22:00 36.5 C 18 07/18/19 21:59 78 93 07/18/19 21:57 69 100 07/18/19 20:25 68 143/103 H 07/18/19 20:10 77 141/76 H 07/18/19 20:00 80 142/80 H 07/18/19 19:57 78 151/97 H 07/18/19 19:40 78 122/68 07/18/19 19:29 79 126/74 07/18/19 19:19 82 126/67 07/18/19 19:17 85 133/71 07/18/19 19:15 37.0 C 18 07/18/19 19:01 76 198/96 H 07/18/19 18:49 70 170/89 H 07/18/19 18:40 82 162/89 H 07/18/19 18:30 75 148/81 H 07/18/19 18:19 66 166/99 H 07/18/19 18:09 78 164/96 H 07/18/19 18:01 76 166/101 H 07/18/19 17:49 78 150/98 H 07/18/19 17:41 75 154/103 H 07/18/19 17:30 75 160/102 H 07/18/19 17:20 82 178/108 H 07/18/19 17:09 83 157/99 H 07/18/19 17:01 88 143/105 H 04/02/19 16:49 37.1 C 87 18 147/101 H 04/02/19 16:38 94 H 144/100 H Pain Intensity Head: Pain Intensity: 3 Transfer of Care Handoff Completed per policy Notes Mental Status: alert / awake / arousable Nausea / Vomiting: adequately controlled Pain: adequately controlled Airway Patency, RR, SpO2: stable & adequate BP & HR: stable & adequate Hydration State: stable & adequate Neuraxial Anesthesia: was administered and sensory block is resolving Anesthetic Complications: no major complications apparent and Pt Satisfied with anesthetic care
[2019-04-03] MEDS ORDERED: VENLAFAXINE HCL XR 150 MG CAPXR PO SCH (09:00)
[2019-04-03] MEDS ORDERED: DIPHTHERIA/TETANUS/PERTUSSIS 0.5 ML SYR/VIAL IM ONE (09:00)
[2019-04-03] MEDS: FERROUS SULFATE 325 MG TAB PO SCH (09:11)
[2019-04-03] MEDS: SIMETHICONE 80 MG CHEW PO SCH ×3 (09:11→20:47)
[2019-04-03] MEDS: DOCUSATE SODIUM 100 MG CAP PO SCH ×2 (09:11→20:47)
[2019-04-03] MEDS: PRENATAL VITAMIN 1 TAB PO SCH (09:11)
[2019-04-03] MEDS: VENLAFAXINE HCL XR 150 MG CAPXR PO SCH (09:12)
[2019-04-03] MEDS ORDERED: MEPERIDINE HCL 50 MG/ML CARP IV PRN (15:56)
[2019-04-03] MEDS ORDERED: OXYCODONE/ACETAMINOPHEN 5mg/325mg TAB PO PRN (15:56)
[2019-04-03] MEDS ORDERED: ONDANSETRON INJ 2 MG/ML 2 ML VIAL IV PRN (15:56)
[2019-04-03] MEDS ORDERED: KETOROLAC 30 MG/ML VIAL IV PRN (15:56)
[2019-04-03] MEDS ORDERED: DiphenhydrAMINE HCL 50 MG/ML VIAL IV PRN (15:56)
[2019-04-03] MEDS ORDERED: BISACODYL 5 MG TABEC PO SCH (20:00)
[2019-04-04] MEDS: IBUPROFEN 600 MG TAB PO PRN ×3 (04:47→23:49)
--- NOTE | 2019-04-04 05:22 | Obstetrical Progress Note ---
Date of Service <Baldev Espinoza MD - Last Filed: 04/04/19 07:43> April 04, 2019 Assessment & Plan <Baldev Espinoza MD - Last Filed: 04/04/19 07:43> Day #:: 1 ([29 y/o s/p C/S @ 37+3 w/ gestational HTN] -Continue to monitor for sxs of PE -POD#1 - GBS neg., Blood Type O+ - Feels well today. Eating well, voiding well, ambulating well. - Pain well controlled. - After discharge will have 3-[address] Butler.) Subjective <Baldev Espinoza MD - Last Filed: 04/04/19 07:43> Ambulation: ambulating normally Voiding: no voiding problems Passing Gas:: Yes Diet Tolerance:: regular diet Lochia:: Moderate Feeding Type:: breast feeding Current Pain Level(1-10): 2 Physical Exam <Baldev Espinoza MD - Last Filed: 04/04/19 07:43> OB PE General: Alert, oriented. No acute distress. Cardiac: Regular rate and rhythm, no murmurs/rubs/gallops. Respiratory: Clear to auscultation anterior and posteriorly, no wheezes/rales/rhonchi. No increased work of breathing. Symmetrical chest rise. No respiratory distress. Abdomen: Soft, nontender, nondistended. Bowel sounds present. Uterus: Uterine fundus firm, palpable at the umbilicus. Lower Extremities: No lower extremity edema or swelling. No deep calf pain. Paris's negative bilaterally. OB ROS Denies fever, chills, sweats Denies shortness of breath, difficulty breathing, chest pain, palpitations, chest pressure. Denies breast pain. Denies dysuria. Denies headache, RUQ pain, vision changes Results & Data <Baldev Espinoza MD - Last Filed: 04/04/19 07:43> Vital Signs (Past 12 Hours) Vital Signs Temp Pulse Resp BP Pulse Ox 04/03/19 23:27 37.7 C H 90 16 138/95 99 04/03/19 19:24 36.9 C 97 H 18 137/91 97 <Renita Kohli MD, FACOG - Last Filed: 04/04/19 07:57> Co-Signing Physician Notes Resident Physician Supervision Note: I interviewed and examined the patient. Discussed with Dr. Espinoza and agree with findings and plan as documented in the note. Any exceptions or clarifications are listed here: Doing well. Blood pressures stable. NO s/s of pet. Plan to monitor pressures through day today and then if stable, plan d/c tomorrow. Documented By: Renita Kohli MD, FACOG
[2019-04-04 06:51] LABS: Eosinophils # (auto) 0.02 K/uL (0-0.5); Eosinophils % (auto) 0.2 %; Hematocrit (blood only) 31.6 % (37-47); Hemoglobin 10.1 g/dL (12.0-16.0); Immature Granulocytes # (auto) 0.02 K/uL (0.00-0.02); Immature Granulocytes % (auto) 0.2 %; Lymphocytes % (auto) 16.5 %; Mean Corpuscular Volume 84.9 fL (80-100); Mean Platelet Volume 11.7 fL (7.4-10.4); Monocytes # (auto) 0.53 K/uL (0.11-0.59); Monocytes % (auto) 5.5 %; Neutrophils # (auto) 7.55 K/uL (1.4-6.5); Neutrophils % (auto) 77.6 %; Platelet Count 188 K/uL (130-400); RDW Standard Deviation 42.2 fL (36.4-46.3); Red Blood Count 3.72 M/uL (4.2-5.4); White Blood Count 9.72 K/uL (4.8-10.8)
[2019-04-04] MEDS: DOCUSATE SODIUM 100 MG CAP PO SCH ×2 (08:12→20:18)
[2019-04-04] MEDS: PRENATAL VITAMIN 1 TAB PO SCH (08:12)
[2019-04-04] MEDS: SIMETHICONE 80 MG CHEW PO SCH ×4 (08:13→20:18)
[2019-04-04] MEDS: VENLAFAXINE HCL XR 150 MG CAPXR PO SCH (08:13)
[2019-04-04] MEDS: FERROUS SULFATE 325 MG TAB PO SCH (08:13)
[2019-04-04] MEDS: LABETALOL HCL 200 MG TAB PO SCH (17:52)
[2019-04-04] MEDS ORDERED: BISACODYL 10 MG SUPP PR PRN (21:27)
[2019-04-05] MEDS: IBUPROFEN 600 MG TAB PO PRN (06:01)
[2019-04-05] MEDS: LABETALOL HCL 200 MG TAB PO SCH (06:02)
--- NOTE | 2019-04-05 07:35 | Obstetrical Progress Note ---
Date of Service April 05, 2019 Assessment & Plan (1) Gestational [-induced] hypertension without significant protein uria, third trimester: BP spiked yesterday evening, but responded to labetalol 200mg PO given last night. Second dose just received this morning. Patient denies any ARCE, vis chng, RUQ pain or edema this morning. Wants to go home. Asked her to give us a few more hours of hourly BP measurements to make sure dose is adequate, and then she can go home with labetalol 200mg PO BID and a BP check in office later this week. She is agreeable. Present on Admission?: Yes Subjective Ambulation: ambulating normally Voiding: no voiding problems Passing Gas:: Yes Diet Tolerance:: regular diet Lochia:: Small Feeding Type:: breast feeding Physical Exam Constitutional WD/WN, vitals as above Eyes PERRL, conjunctivae normal, anicteric sclerae Neck normal visual inspection Respiratory normal respiratory effort and able to speak in complete sentences; no respiratory distress and no labored breathing Cardiovascular Rate/Rhythm: regular rate and regular rhythm Extremities: no edema Chest (Breasts) Chest: normal inspection of chest Gastrointestinal (Abdomen) Inspection/Auscultation: abdomen normal to inspection and + abdominal surgical incision (C/d/i) Soft, postgravid Psychiatric A+Ox3, euthymic affect Genitourinary OB Exam Abdomen: + fundal height Fundus: + firm and + relation to umbilicus (fundus just below umbilicus); not tender Results & Data Vital Signs (Past 12 Hours) Vital Signs Temp Pulse Resp BP Pulse Ox 04/05/19 06:02 93 H 144/98 H 04/04/19 23:30 37.0 C 93 H 18 139/95 99 04/04/19 20:21 88 150/99 H
[2019-04-05] MEDS: SIMETHICONE 80 MG CHEW PO SCH (08:30)
[2019-04-05] MEDS: VENLAFAXINE HCL XR 150 MG CAPXR PO SCH (08:30)
[2019-04-05] MEDS: FERROUS SULFATE 325 MG TAB PO SCH (08:30)
[2019-04-05] MEDS: PRENATAL VITAMIN 1 TAB PO SCH (08:30)
[2019-04-05] MEDS: DOCUSATE SODIUM 100 MG CAP PO SCH (08:30)
--- NOTE | 2019-04-07 15:19 | Discharge Summary ---
PROCEDURES WHILE ADMITTED: Repeat low transverse section. ADMISSION DIAGNOSES: 1. Gestational hypertension at 37 weeks 3 days gestational age. 2. Prior section x2, desiring repeat, BMI 48. 3. Prior history of gestational hypertension. HOSPITAL COURSE: The patient was admitted for gestational hypertension at 37 weeks 3 days gestational age with planned delivery. The patient had a history of 2 prior sections with desired repeat. The consents for a repeat section were obtained at time of admission and the patient proceeded for the repeat low transverse section, which was performed without complication. The patient was noted to have persistent elevated blood pressures at time of admission including severe range blood pressures, the severe range blood pressures were not persistent in nature and therefore were not treated. Labs returned within normal limits prior to proceeding to the OR. The patient remained in house for 3 days . During that time, the patient was noted to have at times persistently elevated blood pressures and was eventually started on p.o. labetalol and was discharged home on a dose of 200 mg b.i.d. This resulted in good blood pressure control. DISCHARGE INSTRUCTIONS: The patient was discharged home with both written and verbal discharge instructions including warning signs for progression and hypertensive disorder of . The patient is scheduled for followup in 1 week for blood pressure check or as needed and 6 weeks for routine visit.
== END 2019-04-05 13:05 | disposition home or self-care (01) | DRG 787 ==
LOC: OPB 16:21 → 4S1 16:22 → 4S2 04-03 00:25

== ENCOUNTER 2022-10-08 05:39 | Inpatient (IN) ==
--- NOTE | 2022-09-28 11:40 | Anesthesiology Consultation ---
Date of Service September 28, 2022 Assessment & Plan (1) Encounter for pre-operative examination: Plan - emergent 04/05/19: SAB L3-L4 1 attempt. - COVID screening: Per hogshead wrecker on 09/28/2022: Travel screen negative, no known COVID-19 positive contacts or current COVID-19 related symptoms in past 2 weeks. To surgeon's discretion if preop COVID testing is needed. Chart Review Chart Review: Acceptable Risk for Surgery and Patient NOT seen in Pre Admission Testing History Surgery Operation Date: 10/08/22 07:30 Proposed Procedures p Section in LD - Renita Kohli MD, FACOG s with Bilateral Tubal Ligation - Renita Kohli MD, FACOG Height/Weight Height: 5 ft 5 in Weight: 101.605 kg Allergies Allergy/AdvReac Type Severity Reaction Status Date / Time No Known Allergies Allergy Verified 09/28/22 10:48 Medications Home Medications Medication Instructions Recorded Confirmed Last Taken aspirin 81 mg tablet,delayed 81 mg PO QAM 09/28/22 09/28/22 Unknown release fluoxetine 40 mg capsule 40 mg PO QAM 09/28/22 09/28/22 Unknown omeprazole 20 mg capsule,delayed 20 mg PO QAM 09/28/22 09/28/22 Unknown release prenat.vits,scott,[id number] 1 tab PO QAM 09/28/22 09/28/22 Unknown Past Medical History Medical History Anemia hx of Anxiety with depression LUIS III (cervical intraepithelial neoplasia III) LEEP procedure GERD (gastroesophageal reflux disease) History of chicken pox remote hx PIH ( induced hypertension) hx of Past Family History Family History Grandmother (Maternal) Family history of diabetes mellitus Hypertension Diabetes Mother Hypertension Depression Aunt Cancer Breast cancer Denies family history of Ovarian cancer Prostate cancer Colorectal cancer Past Surgical History Surgical History History of section x3 S/P LEEP (loop electrosurgical excision procedure) Social History Smoking Status: Former smoker Do You Dip or Chew Tobacco: No Smoking End Date: few mos ago Hx Alcohol Use: No alcohol intake frequency: holidays/special occasions only Hx Substance Use: No substance use type: does not use
--- NOTE | 2022-10-04 11:16 | History & Physical Report ---
Date of Service October 04, 2022 Assessment & Plan (1) History of delivery, currently : (2) with 39 completed weeks gestation: (3) Sterilization consult: Plan Patient presents for repeat c/s x 4 and sterilization. She is sure about sterilization. Discussed other options for control including barriers, hormones, ltrc, vasectomy, regret and ectopic. Plan salpingectomy is able to do. Risks of surgery discussed with the patient including anesthesia, bleeding, transfusion, infection and poor wound healing, damage to surrounding structures with need for further surgery, injury to baby, heart attack, blood clot, stroke, . Consent reviewed and signed. Questions answered. Planned for 10/08/22. History of Present Illness Chief Complaint: repeat c/s Primary Care Provider: Manisha Peoples MD Patient is a 32yoaaf GP who presents for repeat c/s #4 and tubal ligation. Patient has a hx of three previous c/s. Her prior pregnancies have been complicated by GHTN but her pressures this have been normal. complicated by FAiling a 28 week gtt with refusal to do any further testing or monitoring. Additionally, patient desires TL. and Delivery Plans Hx of x3 repeat at 39 weeks (wishes tubal) C/S WITH TUBAL SCHEDULED FOR 10/08/[address] HENNING AND DR[address] CALI ASSIST MA-31 FORM SIGNED 07/25/2022-[facility] Hx of PIH in previous Baby asa recommended at 12 weeks Hx LEEP procedure ( CINIII) (Last pap 2018) Done at first NOB visit Hx SAB x2 Failed 28wk 1hr GTT *Declines to do 2hr GTT *Declines following GDM protocol OB Labs: Blood Type O Positive 05/30/22 Antibody Screen NEGATIVE 05/30/22 Hemoglobin 11.5 g/dl (12.0-16.0) L 07/25/22 Hematocrit 34.7 % (34.1-44.9) 07/25/22 Mean Corpuscular Volume 84.7 fL (80.0-100.0) 05/30/22 Platelet Count 243 K/uL (130-400) 05/30/22 Varicella-Zoster IgG Antibody 1859.00 INDEX 04/09/18 Rubella IgG Antibody Immune (Immune) 05/30/22 Rapid Plasma Reagin Nonreactive (Nonreactive) 07/25/22 Hepatitis B Surface Antigen Neg (Neg) 09/18/18 Hepatitis B Surface Antigen. NON-REACTIVE (NON-REACTIVE) 05/30/22 Hepatitis C Antibody (EIA) NON-REACTIVE (NON-REACTIVE) 05/30/22 HIV (1&2) Ab and P24 Ag, 4th Gener Neg (Neg) 09/18/18 HIV (1&2) Ag and Ab Confirmation NON-REACTIVE (NON-REACTIVE) 05/30/22 Glucose 1 Hour 50 gm Load 134 mg/dl (70-130) H 07/25/22 OB Optional Labs: Chlamydia trachomatis RNA NOT DETECTED (NOT DETECTED) 05/03/22 Neisseria gonorrhoeae RNA NOT DETECTED (NOT DETECTED) 05/03/22 Thyroid Stimulating Hormone (TSH) 1.800 uIu/ml (0.300-4.500) 02/15/21 GBS neg Allergies Allergy/AdvReac Type Severity Reaction Status Date / Time No Known Allergies Allergy Verified 10/04/22 09:23 Home Medications Medication Instructions Recorded Confirmed Type aspirin 81 mg tablet,delayed 81 mg PO QAM 09/28/22 10/04/22 History release fluoxetine 40 mg capsule 40 mg PO QAM 09/28/22 10/04/22 History omeprazole 20 mg capsule,delayed 20 mg PO QAM 09/28/22 10/04/22 History release prenat.vits,scott,kto-rfix-mmnep 1 tab PO QAM 09/28/22 10/04/22 History Patient History Medical History Anemia hx of Anxiety with depression LUIS III (cervical intraepithelial neoplasia III) LEEP procedure GERD (gastroesophageal reflux disease) History of chicken pox remote hx PIH ( induced hypertension) hx of Surgical History History of section x3 S/P LEEP (loop electrosurgical excision procedure) Family History Grandmother (Maternal) Family history of diabetes mellitus Hypertension Diabetes Mother Hypertension Depression Aunt Cancer Breast cancer Denies family history of Ovarian cancer Prostate cancer Colorectal cancer Social History Smoking Status: Former smoker Second Hand Exposure: No; Hx Alcohol Use: No Hx Substance Use: No Preferred Language: Spanish Communication Ability: Effective Visual Impairment: No Limitations Hearing Ability: Normal Lead Software Qa Engineer Required: No Beliefs That Will Affect Care: None marital status: marital status details: Arnaldo Bellamy(30) [phone] Current Living Situation: Spouse and Family Current Living Situation Comment: lives with FOB, 3 children, 1 cat. FOB han ing litter current occupational status: unemployed current occupation: Homemaker Feels Safe at Home: Yes Childhood Exposure to Second-Hand Smoke: No caffeine: Yes Dental Care, Regularly: No Physical Activity Frequency: 1-2 Times per Week Seatbelt Use: always Sunscreen Use: Yes Assistive Devices: None OB History Past Pregnancies Del. Date GA wks Lbr Lgth wt Sex Type del Anes Place Del Prov ? Comment Unknown Aborted-Spontaneous 07/200906/02/10 37 5lb 14oz M Spinal [facility] No GHTN, 06/06/17 37 5lb 7oz. F Spinal [facility] Dr. Vargas No GHTN 04/02/19 37 5lb 14 oz M C-Sectio n Spinal [facility] Dr. Butler No GHTN 11/14/20 10 Aborted-Elective 09/16/21 8 Aborted-Induced [facility] [facility] History noncontributory Physical Exam Constitutional: WD/WN, vitals as above Neck: trachea midline, no thyromegaly Respiratory: normal respiratory effort, lungs clear to auscultation Cardiovascular: RRR, no murmur, no edema Extremities: no calf tenderness and no edema Gastrointestinal (Abdomen): soft, gravid, nt, Pfannenstiel incision Coding Level of Care Code None Diagnoses History of delivery, currently O34.219 with 39 completed weeks gestation Z3A.39 Sterilization consult Z30.09
[2022-10-08] MEDS ORDERED: SODIUM CHLORIDE 0.9% 250 ML IV PRN (05:53)
[2022-10-08] MEDS ORDERED: CITRIC ACID/SODIUM CITRATE 15 ML UDC PO SCH (06:00)
[2022-10-08] MEDS: LACTATED RINGER'S 1,000 ML IV SCH ×2 (06:06→07:06)
[2022-10-08 06:19] LABS: Basophils # (auto) 0.02 K/uL (0-0.2); Basophils % (auto) 0.2 %; Eosinophils # (auto) 0.03 K/uL (0-0.50); Eosinophils % (auto) 0.3 %; Hemoglobin 11.4 g/dl (12.0-16.0); Immature Granulocytes # (auto) 0.04 K/uL (0.00-0.02); Immature Granulocytes % (auto) 0.4 %; Lymphocytes # (auto) 1.86 K/uL (1.2-3.4); Lymphocytes % (auto) 18.8 %; Mean Corpuscular Hemoglobin 28.8 pg (25.0-34.0); Mean Corpuscular Hgb Conc 34.5 g/dL (32.0-36.0); Mean Corpuscular Volume 83.3 fL (80.0-100.0); Mean Platelet Volume 10.9 fL (9.4-12.3); Monocytes # (auto) 0.48 K/uL (0.24-0.82); Monocytes % (auto) 4.9 %; Neutrophils # (auto) 7.46 K/uL (1.4-6.5); Neutrophils % (auto) 75.4 %; Platelet Count 219 K/uL (130-400); RDW Coefficient of Variation 12.7 % (11.5-14.5); Red Blood Count 3.96 M/uL (3.93-5.22); White Blood Count 9.89 K/ul (4.8-10.8)
[2022-10-08] MEDS ORDERED: OXYTOCIN 10 UNITS/ML 10ML VIAL ONE (06:53)
[2022-10-08] MEDS ORDERED: fentaNYL citrate 100 MCG/2 ML VIAL ONE (06:53)
[2022-10-08] MEDS ORDERED: MoRPHine SULFATE PF 1 MG/ML 10 ML AMP/VIAL ONE (06:53)
--- NOTE | 2022-10-08 07:09 | History & Physical Bridge Note ---
Date of Service October 08, 2022 History & Physical Bridge Note I have examined the patient, reviewed the History & Physical and in the interval since the performance of the History & Physical I have noted the following changes of clinical significance: no changes noted
[2022-10-08] MEDS ORDERED: ONDANSETRON INJ 2 MG/ML 2 ML VIAL ONE (08:00)
[2022-10-08] MEDS ORDERED: PHENYLEPHRINE 100MCG/ML 5ML SYR ONE (08:06)
[2022-10-08] MEDS ORDERED: ePHEDrine sulfate 50 MG/ML AMP IV PRN (08:08)
[2022-10-08] MEDS ORDERED: NALOXONE HCL 0.08 MG in SYRINGE 1.8 ML IV PRN (08:08)
[2022-10-08] MEDS ORDERED: NALBUPHINE HCL INJ 10 MG/ML AMP IV PRN (08:08)
[2022-10-08] MEDS ORDERED: diphenhydrAMINE 50 MG/ML VIAL IV PRN (08:08)
[2022-10-08] MEDS ORDERED: LACTATED RINGER'S 500 ML IV PRN (08:08)
[2022-10-08] MEDS ORDERED: NALOXONE HCL 0.4 MG/1 ML VIAL/CARP IV PRN (08:08)
[2022-10-08] MEDS ORDERED: ONDANSETRON INJ 2 MG/ML 2 ML VIAL IV PRN (08:08)
[2022-10-08] MEDS ORDERED: MoRPHine SULFATE PF 1 MG/ML 10 ML AMP/VIAL INT SPINAL ONE (08:08)
[2022-10-08] MEDS ORDERED: KETOROLAC 30 MG/ML VIAL IV PRN (08:08)
[2022-10-08] MEDS ORDERED: NALOXONE HCL 1 MG in SODIUM CHLORIDE 0.9% 1000ML 1,000 ML IV PRN (08:08)
[2022-10-08] MEDS ORDERED: MEPERIDINE HCL 25 MG/ML CARP/VIAL IV PRN (08:08)
[2022-10-08] MEDS ORDERED: NO NARCOTICS OR SEDATIVES SCH (08:15)
[2022-10-08] MEDS ORDERED: SODIUM CHLORIDE 0.9% 1000ML 1,000 ML IV SCH (08:15)
[2022-10-08] MEDS ORDERED: DC INTRASPINAL MORPHINE SCH (08:15)
[2022-10-08] MEDS ORDERED: BENZOCAINE 20% AER SPR 82.5 GM CAN EXT PRN (08:49)
[2022-10-08] MEDS ORDERED: HYDROCORTISONE ACETATE 25 MG SUPP PR PRN (08:49)
[2022-10-08] MEDS ORDERED: MAGNESIUM HYDROXIDE SUSP 30 ML UDC PO PRN (08:49)
[2022-10-08] MEDS ORDERED: SENNA 8.6 MG TAB PO PRN (08:49)
[2022-10-08] MEDS ORDERED: DIPHTHERIA/TETANUS/PERTUSSIS 0.5mL SYR/VIAL (Age 7+yrs) IM ONE (08:49)
[2022-10-08] MEDS ORDERED: LACTATED RINGER'S 1,000 ML IV SCH (09:00)
--- NOTE | 2022-10-08 09:00 | Operative Report ---
PG Post Operative Report Pre & Post Diagnosis Operation Date: 10/08/22 07:30 Pre-Op Diagnosis: 1. IUP at 39 weeks 2. Previous x 3 3. Desires sterilization Post-Op Diagnosis: Same I identified the patient and participated in the time-out.: Yes Procedure Operation Date: 10/08/22 07:30 Actual Procedures Repeat lower uterine transvere section and bilateral tubal ligation for the of a live boy infant at 0815 - Renita Kohli MD, FACOG Surgeon Renita Kohli MD, FACOG Basket Person Reynaldo Graves, MS2 Estimated Blood Loss 600 Findings Consistent with Post-Op Diagnosis viable male , cephalic, , apgars 7/8, nl uterus/tubes/ovs bilaterally. Fluids [id number] Specimens tubal segments bilaterally Drains cameron Anesthesia Type Spinal Complications none Disposition Accompanied Patient To Recovery: Yes Disposition: L&D Indications Patient is a 32yoaa female presents for repeat c/s x 4 and tubal ligation. Description of Procedure The patient was taken to the operating room where she was identified verbally and by bracelet. She was seated on the operating table where a spinal anesthetic was placed by anesthesia. She was then placed in the supine position with a leftward tilt. A Cameron catheter was placed sterilely. the patient was prepped and draped in a normal standard fashion. the anesthetic was tested and found to be adequate. A time-out was held, identifying correct patient, procedure, positioning and preoperative antibiotics. There were no concerns. A Pfannenstiel skin incision was made with a knife and taken down to the underlying layer of fascia with the knife and Bovie electrocautery. Bleeding was attended to with the Bovie. The fascia was incised in the midline with the knife and taken out laterally with scissors. The superior edge of the fascial incision was grasped, elevated and the underlying layer of rectus muscle was taken off bluntly and with scissors. In a similar fashion, the inferior edge of the fascial incision was grasped, elevated and the underlying layer of rectus muscle was taken off bluntly and with scissors. The muscles were sharply in the midline. The peritoneum was entered sharply. A finger was placed in the abdomen and no adhesions noted. The incision was then opened sharply. The bladder blade was placed. The vesicouterine peritoneum was identified, entered with scissors and taken out laterally with scissors. The bladder flap was created digitally. A hysterotomy incision was scored with a knife and the incision was stretched superiorly and inferiorly with the cutting table operator's fingers. The operators hand was placed into the incision and the head was delivered atraumatically with a vacuum assist. No nuchal cord. The nose and mouth were bulb suctioned. the rest of the was then delivered without difficulty. The nose and mouth were again bulb suctioned. The cord was clamped and cut and the was then handed off to the awaiting open hearth laborer for drying and attention. Cord blood and segment were obtained. The placenta was expressed with traction. The uterus was exteriorized and cleared of all clot and debris with moistened laparotomy sponges. The hysterotomy incision was repaired in one locked layer of 0 vicryl. Hemostasis was noted to be good. Posterior cul-de-sac was irrigated and cleared of all clot and debris. The hysterotomy incision was again inspected and found to be hemostatic. We then preformed a bilateral salpingectomy using the ligasure, first on the right and then on the left. Hemostasis was excellent. the uterus was reinteriorized. Hysterotomy incision was again inspected and found to be hemostatic. Rectus muscles were reapproximated with several interrupted stitches of 0 Vicryl. The fascia was then reapproximated with 0 Vicryl starting at the edges and meeting in the midline. The subcuticular tissues were copiously irrigated and bleeding was attended to with cautery. The skin was then closed with 4-0 Vicryl in a subcuticular fashion. all sponge , lap and needle counts were correct x 2. the patient was taken to recovery in stable condition. I attest to the content of the Intraoperative Record and any orders documented therein. Any exceptions are noted below.
[2022-10-08 09:21] LABS: Base Excess Cord Venous Blood -2.5 mEq/L (-7.7-1.9); Cord Venous Blood HCO3 26 mmol/L (18.4-26.8); Cord Venous Blood PCO2 58 mmHg (30.4-57.2); Cord Venous Blood PO2 13 mmHg (14.1-43.3); Cord Venous Blood pH 7.26 (7.20-7.44); O2 Saturation Cord Venous Bld < 60.0 % (<68)
[2022-10-08 09:25] LABS: Base Excess Cord Arterial Bld -3.9 mEq/L (-9-1.8); CO2 Cord Arterial Blood 60 mmHg (39.1-73.5); HCO3 Cord Arterial Blood 25 mmol/L (19.7-28.5); Oxygen Sat Cord Arterial Blood < 60.0 % (<60); PO2 Cord Arterial Blood 9 mmHg (4.1-31.7); pH Cord Arterial Blood 7.23 (7.1-7.38)
--- NOTE | 2022-10-08 09:26 | Anesthesiology Progress Note ---
Date of Service October 08, 2022 Anesthesia Post Procedure Vital Signs Vital Signs: Temp Pulse Resp BP Pulse Ox 10/08/22 09:10 18 10/08/22 09:00 18 10/08/22 06:07 97.9 F 78 18 131/91 10/08/22 09:21 86 100 10/08/22 09:20 67 118/64 10/08/22 09:16 64 99 10/08/22 09:11 81 99 10/08/22 09:10 63 129/71 10/08/22 09:06 72 99 10/08/22 09:01 63 98 10/08/22 09:00 71 123/69 10/08/22 08:56 65 97 10/08/22 08:51 80 99 10/08/22 08:50 75 138/61 10/08/22 05:45 78 131/91 Transfer of Care Handoff Completed per policy Notes Mental Status: alert / awake / arousable and participated in evaluation Nausea / Vomiting: adequately controlled Pain: adequately controlled Airway Patency, RR, SpO2: stable & adequate BP & HR: stable & adequate Hydration State: stable & adequate Neuraxial Anesthesia: was administered and sensory block is resolving Anesthetic Complications: no major complications apparent and Pt Satisfied with anesthetic care
[2022-10-08] MEDS: OXYTOCIN 20 UNITS in LACTATED RINGER'S 1,000 ML IV SCH ×2 (10:47→19:49)
[2022-10-08] MEDS: SIMETHICONE 80 MG CHEW PO SCH ×3 (13:30→20:37)
[2022-10-08] MEDS ORDERED: FLUoxetine HCL 20 MG CAP PO STA (16:56)
[2022-10-09] MEDS ORDERED: oxyCODONE/ACETAMINOPHEN 5mg/325mg TAB PO PRN (02:09)
[2022-10-09] MEDS ORDERED: KETOROLAC 30 MG/ML VIAL IV PRN (02:09)
[2022-10-09] MEDS ORDERED: PROMETHAZINE HCL 25 MG in SODIUM CHLORIDE 0.9% 50 ML IV PRN (02:09)
[2022-10-09] MEDS ORDERED: ONDANSETRON INJ 2 MG/ML 2 ML VIAL IV PRN (02:09)
[2022-10-09] MEDS ORDERED: diphenhydrAMINE 50 MG/ML VIAL IV PRN (02:09)
[2022-10-09] MEDS ORDERED: diphenhydrAMINE Capsule 25 MG CAP PO PRN (02:09)
[2022-10-09] MEDS ORDERED: MEPERIDINE HCL 50 MG/ML CARP IV PRN (02:09)
[2022-10-09] MEDS: IBUPROFEN 600 MG TAB PO PRN ×3 (06:33→17:25)
--- NOTE | 2022-10-09 06:52 | Obstetrical Progress Note ---
Date of Service October 09, 2022 Assessment & Plan (1) state: Post operative day #1 the patient is doing well has no extremity pain or bleeding is minimal her incision is clean dry and intact we will encourage ambulation Subjective Passing Gas:: Yes Diet Tolerance:: regular diet Lochia:: Small Current Pain Level(1-10): 2 Constitutional: + as per Subjective / HPI Physical Exam Constitutional WD/WN, vitals as above well developed and well nourished Respiratory normal respiratory effort, lungs clear to auscultation normal respiratory effort Cardiovascular RRR, no murmur, no edema Gastrointestinal (Abdomen) normal bowel sounds, soft, nontender, no hepatosplenomegaly Results & Data ([facility]) Vital Signs (Past 12 Hours) Vital Signs Temp Pulse Pulse Resp BP Pulse Ox O2 Del Method 10/09/22 03:00 97.3 F L 62 18 136/74 98 Room Air 10/09/22 02:00 18 97 10/09/22 01:00 20 98 10/09/22 00:00 16 97 10/08/22 23:18 20 97 10/08/22 23:18 97.3 F L 88 68 20 142/86 H 97 Room Air 10/08/22 21:30 18 100 10/08/22 21:30 97.9 F 68 18 149/98 H 10/08/22 20:30 18 98 10/08/22 19:33 18 97
[2022-10-09 07:06] LABS: Basophils # (auto) 0.02 K/uL (0-0.2); Basophils % (auto) 0.2 %; Eosinophils # (auto) 0.05 K/uL (0-0.50); Eosinophils % (auto) 0.4 %; Hematocrit (blood only) 34.1 % (34.1-44.9); Hemoglobin 11.5 g/dl (12.0-16.0); Immature Granulocytes # (auto) 0.03 K/uL (0.00-0.02); Immature Granulocytes % (auto) 0.3 %; Lymphocytes # (auto) 1.59 K/uL (1.2-3.4); Lymphocytes % (auto) 13.7 %; Mean Corpuscular Hemoglobin 29.4 pg (25.0-34.0); Mean Corpuscular Hgb Conc 33.7 g/dL (32.0-36.0); Mean Corpuscular Volume 87.2 fL (80.0-100.0); Mean Platelet Volume 11.1 fL (9.4-12.3); Monocytes # (auto) 0.36 K/uL (0.24-0.82); Monocytes % (auto) 3.1 %; Neutrophils # (auto) 9.56 K/uL (1.4-6.5); Neutrophils % (auto) 82.3 %; Platelet Count 199 K/uL (130-400); RDW Coefficient of Variation 12.8 % (11.5-14.5); RDW Standard Deviation 40.4 fL (36.4-46.3); Red Blood Count 3.91 M/uL (3.93-5.22); White Blood Count 11.61 K/ul (4.8-10.8)
[2022-10-09] MEDS: DOCUSATE SODIUM 100 MG CAP PO SCH ×3 (08:00→23:17)
[2022-10-09] MEDS: PRENATAL VITAMIN 1 TAB PO SCH (09:10)
[2022-10-09] MEDS: SIMETHICONE 80 MG CHEW PO SCH ×4 (09:11→23:17)
[2022-10-09] MEDS: FERROUS SULFATE 325 MG TAB PO SCH (09:11)
[2022-10-09] MEDS: FLUoxetine HCL 20 MG CAP PO SCH (09:11)
[2022-10-09] MEDS ORDERED: bisacodyL 5 MG TABEC PO SCH (20:00)
[2022-10-10] MEDS: IBUPROFEN 600 MG TAB PO PRN ×3 (04:09→13:35)
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
[2022-10-10 07:24] LABS: Hematocrit (blood only) 32.5 % (34.1-44.9); Hemoglobin 10.9 g/dl (12.0-16.0)
[2022-10-10] MEDS ORDERED: bisacodyL 10 MG SUPP PR PRN (08:49)
[2022-10-10] MEDS: SIMETHICONE 80 MG CHEW PO SCH ×2 (09:40→13:35)
[2022-10-10] MEDS: PRENATAL VITAMIN 1 TAB PO SCH (09:40)
[2022-10-10] MEDS: DOCUSATE SODIUM 100 MG CAP PO SCH (09:40)
[2022-10-10] MEDS: FERROUS SULFATE 325 MG TAB PO SCH (09:40)
[2022-10-10] MEDS: FLUoxetine HCL 20 MG CAP PO SCH (09:40)
--- NOTE | 2022-10-11 12:36 | Discharge Summary ---
Date of Service October 11, 2022 Admission HPI Per Admitting Provider Patient is a 32yoaaf GP who presents for repeat c/s #4 and tubal ligation. Patient has a hx of three previous c/s. Her prior pregnancies have been complicated by GHTN but her pressures this have been normal. complicated by FAiling a 28 week gtt with refusal to do any further testing or monitoring. Additionally, patient desires TL. and Delivery Plans Hx of x3 repeat at 39 weeks (wishes tubal) C/S WITH TUBAL SCHEDULED FOR 10/08/[address] HENNING AND DR[address] CALI ASSIST MA-31 FORM SIGNED 07/25/2022-[facility] Hx of PIH in previous Baby asa recommended at 12 weeks Hx LEEP procedure ( CINIII) (Last pap 2018) Done at first NOB visit Hx SAB x2 Failed 28wk 1hr GTT *Declines to do 2hr GTT *Declines following GDM protocol OB Labs: Blood Type O Positive 05/30/22 Antibody Screen NEGATIVE 05/30/22 Hemoglobin 11.5 g/dl (12.0-16.0) L 07/25/22 Hematocrit 34.7 % (34.1-44.9) 07/25/22 Mean Corpuscular Volume 84.7 fL (80.0-100.0) 05/30/22 Platelet Count 243 K/uL (130-400) 05/30/22 Varicella-Zoster IgG Antibody 1859.00 INDEX 04/09/18 Rubella IgG Antibody Immune (Immune) 05/30/22 Rapid Plasma Reagin Nonreactive (Nonreactive) 07/25/22 Hepatitis B Surface Antigen Neg (Neg) 09/18/18 Hepatitis B Surface Antigen. NON-REACTIVE (NON-REACTIVE) 05/30/22 Hepatitis C Antibody (EIA) NON-REACTIVE (NON-REACTIVE) 05/30/22 HIV (1&2) Ab and P24 Ag, 4th Gener Neg (Neg) 09/18/18 HIV (1&2) Ag and Ab Confirmation NON-REACTIVE (NON-REACTIVE) 05/30/22 Glucose 1 Hour 50 gm Load 134 mg/dl (70-130) H 07/25/22 OB Optional Labs: Chlamydia trachomatis RNA NOT DETECTED (NOT DETECTED) 05/03/22 Neisseria gonorrhoeae RNA NOT DETECTED (NOT DETECTED) 05/03/22 Thyroid Stimulating Hormone (TSH) 1.800 uIu/ml (0.300-4.500) 02/15/21 GBS neg Discharge Data Consultations 10/08/22 05:49 Consult Anesthesiology Stat Procedures Performed Operation Date: 10/08/22 07:30 Actual Procedures p Section in LD; Repeat lower uterine transver section and bilateral tubal ligation for the of a live boy at 0815 - Renita Henning MD, FACOG Hospital Course (1) Sterilization consult: (2) state: (3) History of delivery, currently : Plan Patient was admitted and underwent a repeat and bilateral salpingectomy without difficulty, EBL--600cc. course unco mplicated--tolerated a regular diet, ambulated without difficulty, voided after cameron removed. Tolerated oral pain meds. d/c h/h 10.9/32.5. Had some mildly elevated blood pressures toward the end of her stay. No s/s of preeclampsia. Discharged home with f/u in office for blood pressure check in one week. Coding Level of Care Code None Diagnoses Sterilization consult Z30.09 state Z39.2 History of delivery, currently O34.219
== END 2022-10-10 14:20 | disposition home or self-care (01) | DRG 785 ==
LOC: 4S1 05:39 → EDSTATUS 07:30 → 4E2 12:00

== ENCOUNTER 2023-01-02 13:41 | Inpatient (IN) ==
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
[2023-01-02] MEDS ORDERED: LORazepam 2 MG/1 ML VIAL IV STA ×2 (14:59→19:23)
[2023-01-02] MEDS ORDERED: SODIUM CHLORIDE 0.9% 1000ML 1,000 ML IV SCH (15:00)
[2023-01-02 15:50] LABS: Basophils # (auto) 0.02 K/uL (0-0.2); Basophils % (auto) 0.2 %; Eosinophils # (auto) 0.02 K/uL (0-0.50); Eosinophils % (auto) 0.2 %; Hematocrit (blood only) 39.8 % (37.0-47.0); Hemoglobin 13.6 g/dl (12.0-16.0); Immature Granulocytes # (auto) 0.03 K/uL (0.01-0.20); Immature Granulocytes % (auto) 0.3 %; Lymphocytes # (auto) 1.33 K/uL (1.2-3.4); Lymphocytes % (auto) 15.2 %; Mean Corpuscular Hemoglobin 29.8 pg (25.0-34.0); Mean Corpuscular Hgb Conc 34.2 g/dL (32.0-36.0); Mean Corpuscular Volume 87.3 fL (80.0-100.0); Mean Platelet Volume 10.9 fL (9.4-12.4); Monocytes # (auto) 0.57 K/uL (0.11-0.59); Monocytes % (auto) 6.5 %; Neutrophils # (auto) 6.79 K/uL (1.40-6.50); Neutrophils % (auto) 77.6 %; Platelet Count 311 K/uL (130-400); RDW Coefficient of Variation 14.1 % (11.5-14.5); RDW Standard Deviation 45.4 fL (36.4-46.3); Red Blood Count 4.56 M/uL (4.20-5.40); White Blood Count 8.76 K/ul (4.8-10.8)
[2023-01-02 16:00] LABS: Acetaminophen < 3 ug/ml (10-30); Salicylate < 3.0 mg/dl (3.0-30)
[2023-01-02 16:01] LABS: Albumin Globulin Ratio 1.3 (0.9-2); Albumin Level 4.6 gm/dl (3.4-5.0); BUN Creatinine Ratio 8.5 (10-20); Calcium 9.6 mg/dl (8.6-10.3); Creatinine Clr Calc Pharmacy 136.1 ml/min; Est GFR (African American) 131.5 ml/min; Est GFR (Non-African American) 113.5 ml/min; Globulin 3.5 gm/dl (2.5-4.0); Potassium 3.1 mmol/L (3.5-5.1); Total Protein 8.1 gm/dl (6.0-8.3)
[2023-01-02 16:06] LABS: Troponin I High Sensitivity 5.8 pg/ml (0-14)
[2023-01-02 16:19] LABS: Partial Thromboplastin Ratio 0.9; Partial Thromboplastin Time 24.8 Seconds (21.0-31.0)
[2023-01-02] MEDS ORDERED: SODIUM CHLORIDE 0.9% 1000ML 1,000 ML IV ONE (16:20)
[2023-01-02] MEDS ORDERED: POTASSIUM CHLORIDE CRTAB 20 MEQ TABCR PO STA (16:20)
[2023-01-02 17:35] LABS: Appearance Urine Clear (Clear); Bacteria Urine Automated Negative (Negative); Bilirubin Urine Negative (Negative); Blood Urine 3+ (Negative); Color Urine Dark Yellow; Epithelial Cell Urine Auto 20-30 /lpf (0-5); Glucose Urine UA Negative (Negative); Ketones Urine 4+ (Negative); Leukocyte Esterase Urine Trace (Negative); Nitrite Urine Negative (Negative); Protein Urine 1+ (Negative); RBC Urine Automated >30 /hpf (0-4); Specific Gravity Urine 1.025 (1.000-1.030); Urobilinogen Urine Positive (Negative); pH Urine 6.5 (4.5-7.5)
--- NOTE | 2023-01-02 18:01 | Emergency Department Note ---
ED Visit Note I received this patient at change of shift signout from Dr. Rosenberg. Please see his charting for initial history and physical exam. The patient is a 32-year-old female who presented to the emergency department for mental health evaluation. She was evaluated by mouth 12 case supervisor. She was felt to be a good candidate for inpatient management at this time she is agreeable to this plan. She was felt to be a good candidate for 201 admission. At this time bed search is underway. I was asked to reevaluate the patient as she was becoming somewhat confused. Her blood pressure has been trending upward. The nursing staff did evaluate the patient for alcohol withdrawal and she did have an elevation in her score. CT of the head abdomen and pelvis were obtained to ensure there is no other intracranial pathology causing the symptoms. On reevaluation the case supervisor felt the patient was becoming more confused. For this reason they recommended that I discussed this case with the on-call [facility] hospitalist for further inpatient management and evaluation. .
[2023-01-02 18:09] LABS: Amphetamines+Metham, Urine Neg (Neg); Barbiturates, Urine Neg (Neg); Benzodiazepine, Urine Neg (Neg); Cocaine, Urine Neg (Neg); MDMA (Ecstacy), Urine Neg (Neg); Methadone, Urine Neg (Neg); Opiate, Urine Neg (Neg); Phencyclidine, Urine Neg (Neg)
--- NOTE | 2023-01-02 18:37 | CT Scan Report ---
CT head/brain wo con CLINICAL HISTORY: ams Technique: Contiguous axial CT images of the head were acquired from the base of the skull to the [place] without intravenous contrast administration. Images were viewed in brain, subdural and bone [facility]. Automated dose lowering techniques and/or adjustment according to patient size were utilized for this exam. Comparison: None available at the time of this dictation. Findings: The ventricles, basal cisterns, and cerebral sulci are normal. There is no acute intracranial hemorrh age or evidence of acute territorial infarction. Neither mass effect, shift of the midline structures , nor abnormal extra-axial fluid collections are shown. Imaged portions of the paranasal sinuses and mastoid air cells are clear. The orbits appear normal. There are no acute fractures of the calvaria or scalp swelling. Impression: No acute intracranial hemorrhage, no evidence of acute territorial infarction or other acute intracra nial disease process. ACT 112: Negative or not required by law. Electronically signed by: Sean Delatorre M.D. 01/02/2023 6:35 PM
--- NOTE | 2023-01-02 18:50 | CT Scan Report ---
CT abd pelvis wo con CLINICAL HISTORY: hematuria TECHNIQUE: Helical axial images of the abdomen and pelvis were obtained. Automated dose lowering tech niques and/or adjustment according to patient size were utilized for this exam. This exam was perfor med without intravenous contrast. CT DOSE: 922.96 mGycm COMPARISON: None available at the time of this dictation. FINDINGS: Lower chest: No acute abnormality. Liver: Unremarkable. No focal lesions are seen. Gallbladder and biliary tree: No calcified gallstones. Normal caliber wall. No intra- or extrahepatic biliary ductal dilation. Pancreas: Unremarkable, no focal lesions. Spleen: Splenule is incidentally noted. Adrenals: Unremarkable. Kidneys and ureters: Unremarkable. Bladder: Limited evaluation due to underdistention. Reproductive organs: Unremarkable. Bowel: The appendix is normal. Lymph nodes Retroperitoneal: Unremarkable. Pelvic: Unremarkable. Mesenteric: Unremarkable. Peritoneum: Normal. Vessels: Unremarkable. Abdominal wall: Unremarkable. Bones: Minimal degenerative changes are seen. IMPRESSION: No acute abnormalities and in particular no evidence of urothelial mass within limits of noncontrast technique. ACT 112: Negative or not required by law. Electronically signed by: Sean Delatorre M.D. 01/02/2023 6:48 PM
--- NOTE | 2023-01-02 20:27 | History & Physical Report ---
Date of Service January 02, 2023 Assessment & Plan (1) Anxiety with depression: Plan: Patient reports increased anxiety and difficulty managing things at home. She is having a hard time adjusting after having her 4th baby. She denies SI/HI or hallucinations. Was on Fluoxetine which she was not taking as directed -Continue Fluoxetine 40mg po qAM -Consider Psychiatry consultation (2) Hypertension: Plan: Patient with marked elevation of blood pressure. No ARCE/CP/SOB/Back pain at this time. Possibly secondary to EtOH withdrawal + anxiety -Hydralazine 5mg IV given -Clonidine 0.1mg po TID as needed -Continue to monitor UA with 3+ blood, protein, urobilinogen. No bacteria. No stones or urothelial mass noted on imaging. Possible nephritic syndrome contributing to patient's significant hypertension vs severe hypertension leading to hematuria? Renal function is intact. -Ordered urine microscopy, further assess RBCs in urine -Spot Urine Protein:Creatinine -Consider Nephrology consultation - additional workup with complements, KAI, ANCA, Heptatitis panel pending above results (3) Alcohol withdrawal: Plan: Possible EtOH withdrawal. Patient reports drinking on most days of the week, several drinks per day. Unable to fully quantify amount. Last drink 1-2 days ago. EtOH level <10. She does report having shakes before after going without alcohol -Clonidine PRN BP and withdrawal symptoms -AWSS -Banana bag -Thiamine and Folate History of Present Illness Chief Complaint: Anxiety, hypertension Primary Care Provider: Manisha Peoples MD Gaby Bellamy is a 32yo female with history of generalized anxiety disorder and HTN presenting with worsening anxiety and hypertension. Patient states that she has been feeling very anxious for the last several days. She was seen by her PCP on 12/31/22 with this complaint and was restarted on her Fluoxetine. Of note, patient is a somewhat poor historian. Received Ativan prior to my interview. Patient recently gave to a son in September 2023. She has 4 children at home that she cares for. She reports feeling good for about 1 month after having her baby, however, after that she has been having increased difficulty managing things at home. She reports difficulty keeping to a schedule and getting things done. She states that she has been feeling much more anxious and depressed over the last several weeks. She has not been eating well due to lack of appetite or sleeping at home. She states that she is "not thinking clearly" at home sometimes and gets confused. She denies suicidal or homicidal ideation, denies hallucinations. She has not been taking her medications as prescribed. Reports missing some doses then taking double doses. She does report to drinking alcohol fairly frequently - she reports drinking on most days of the week, beer/liquor and wine at times. She is unable to quantify the amount of alcohol that she drinks daily. Last drink was 1-2 days ago. She has had shakes before after quitting drinking but has never had withdrawal seizures or DTs. She reports having chest pains at times as well as shortness of breath. Denies abdominal pain, nausea, vomiting or diarrhea. No additional complaints In the ER she is hypertensive ER Course: NSS x 2L Ativan 1mg IV x 2 doses KCL 40mEq po Hydralazine 5mg IV Allergies Allergy/AdvReac Type Severity Reaction Status Date / Time No Known Allergies Allergy Verified 11/20/22 12:50 Home Medications Medication Instructions Recorded Confirmed Type fluoxetine 40 mg capsule 40 mg PO QAM #30 caps 12/31/22 12/31/22 Rx Past Med/Surg History Medical History Anemia hx of Anxiety with depression LUIS III (cervical intraepithelial neoplasia III) LEEP procedure GERD (gastroesophageal reflux disease) History of chicken pox remote hx PIH ( induced hypertension) hx of Surgical History History of section x3 S/P LEEP (loop electrosurgical excision procedure) Family History Grandmother (Maternal) Family history of diabetes mellitus Hypertension Diabetes Mother Hypertension Depression Aunt Cancer Breast cancer Denies family history of Ovarian cancer Prostate cancer Colorectal cancer Social History Smoking Status: Never smoker Second Hand Exposure: Yes (occassionally); Hx Alcohol Use: No Hx Substance Use: No Preferred Language: Dutch Communication Ability: Effective Visual Impairment: No Limitations Hearing Ability: Normal Brass Chaser Required: No Beliefs That Will Affect Care: None marital status: marital status details: Arnaldo Bellamy(30) [phone] Current Living Situation: Spouse and Family Current Living Situation Comment: lives with FOB, 3 children, 1 cat. FOB changing litter current occupational status: unemployed current occupation: Homemaker Feels Safe at Home: Yes Childhood Exposure to Second-Hand Smoke: No caffeine: Yes Dental Care, Regularly: No Physical Activity Frequency: 1-2 Times per Week Seatbelt Use: always Sunscreen Use: Yes Gender Identity: Female Assistive Devices: Glasses Review of Systems Review of Systems: All systems reviewed & are unremarkable except as noted in HPI & below Physical Exam Physical Exam: General: patient resting comfortably, NAD, non-toxic in appearance, AA&O to self and location Skin: warm, dry, intact, no rashes or lesions HEENT: NC/AT, PERRL, EOMI, no nystagmus, anicteric sclera, conjunctiva without injection, external ear normal to inspection and nontender, nares patent, moist mucus membranes, dentition intact, no oropharyngeal lesions, neck supple, trachea midline, no LAD, no thyromegaly, no JVD Heart: +S1/S2, regular, no m/r/g Lungs: equal air entry bilaterally, no rales/rhonchi/wheezes Abd: +BS, soft, NT/ND, no masses/organomegaly/ascites Ext: warm, 2+ pulses in UE/LE bilaterally, no clubbing/cyanosis or edema Neuro: nonfocal, patient AA&O, speech intact, no facial droop, moving all extremities on command with equal strength 5/5, no muscular rigidity or clonus Results & Data Results & Data Vital Signs (Past 12 Hours) Vital Signs Temp Pulse Pulse Resp BP BP Pulse Ox 01/02/23 20:01 107 H 22 177/136 H 01/02/23 19:26 89 26 H 01/02/23 19:26 219/134 H 01/02/23 19:20 112 H 22 01/02/23 19:10 116 H 22 01/02/23 19:00 92 H 26 H 01/02/23 18:50 98 H 29 H 01/02/23 18:40 97 H 15 01/02/23 18:39 109 H 27 H 01/02/23 18:20 103 H 26 H 01/02/23 18:10 101 H 28 H 01/02/23 18:00 97 H 23 01/02/23 17:53 93 H 25 H 98 01/02/23 17:53 172/115 H 01/02/23 16:40 113 H 97 01/02/23 16:30 108 H 26 H 99 01/02/23 16:20 108 H 21 100 01/02/23 16:10 98 H 22 99 01/02/23 16:00 100 H 25 H 95 01/02/23 15:50 90 22 98 01/02/23 15:40 98 H 23 97 01/02/23 15:30 95 H 24 99 01/02/23 15:20 102 H 17 100 01/02/23 15:10 86 17 100 01/02/23 15:00 81 21 100 01/02/23 14:54 102 H 16 99 01/02/23 19:11 98 H 01/02/23 17:56 37.1 C 92 H 16 172/115 H 97 01/02/23 15:12 82 18 181/133 H 100 01/02/23 15:02 106 H 01/02/23 13:44 36.8 C 101 H 18 216/100 H 95 O2 Del Method 01/02/23 20:01 01/02/23 19:26 01/02/23 19:26 01/02/23 19:20 01/02/23 19:10 01/02/23 19:00 01/02/23 18:50 01/02/23 18:40 01/02/23 18:39 01/02/23 18:20 01/02/23 18:10 01/02/23 18:00 01/02/23 17:53 01/02/23 17:53 01/02/23 16:40 01/02/23 16:30 01/02/23 16:20 01/02/23 16:10 01/02/23 16:00 01/02/23 15:50 01/02/23 15:40 01/02/23 15:30 01/02/23 15:20 01/02/23 15:10 01/02/23 15:00 01/02/23 14:54 01/02/23 19:11 01/02/23 17:56 Room Air 01/02/23 15:12 Room Air 01/02/23 15:02 01/02/23 13:44 Room Air Laboratory Results Laboratory Results WBC 8.76 K/ul (4.8-10.8) 01/02/23 15:04 RBC 4.56 M/uL (4.20-5.40) 01/02/23 15:04 Hgb 13.6 g/dl (12.0-16.0) 01/02/23 15:04 Hct 39.8 % (37.0-47.0) 01/02/23 15:04 MCV 87.3 fL (80.0-100.0) 01/02/23 15:04 MCH 29.8 pg (25.0-34.0) 01/02/23 15:04 MCHC 34.2 g/dL (32.0-36.0) 01/02/23 15:04 RDW Std Deviation 45.4 fL (36.4-46.3) 01/02/23 15:04 RDW Coeff of [place] 14.1 % (11.5-14.5) 01/02/23 15:04 Plt Count 311 K/uL (130-400) 01/02/23 15:04 MPV 10.9 fL (9.4-12.4) 01/02/23 15:04 Immature Gran % (Auto) 0.3 % 01/02/23 15:04 Neut % (Auto) 77.6 % 01/02/23 15:04 Lymph % (Auto) 15.2 % 01/02/23 15:04 Cottle % (Auto) 6.5 % 01/02/23 15:04 Eos % (Auto) 0.2 % 01/02/23 15:04 Baso % (Auto) 0.2 % 01/02/23 15:04 Neut # (Auto) 6.79 K/uL (1.40-6.50) H 01/02/23 15:04 Lymph # (Auto) 1.33 K/uL (1.2-3.4) 01/02/23 15:04 Cottle # (Auto) 0.57 K/uL (0.11-0.59) 01/02/23 15:04 Eos # (Auto) 0.02 K/uL (0-0.50) 01/02/23 15:04 Baso # (Auto) 0.02 K/uL (0-0.2) 01/02/23 15:04 Immature Gran # (Auto) 0.03 K/uL (0.01-0.20) 01/02/23 15:04 PT 11.0 Seconds (9.0-12.0) 01/02/23 15:04 INR 1.0 (0.9-1.1) 01/02/23 15:04 APTT 24.8 Seconds (21.0-31.0) 01/02/23 15:04 PTT Ratio 0.9 01/02/23 15:04 Sodium 139 mmol/L (136-145) 01/02/23 15:04 Potassium 3.1 mmol/L (3.5-5.1) L 01/02/23 15:04 Chloride 102 mmol/L (98-107) 01/02/23 15:04 Carbon Dioxide 25 mmol/L (21-32) 01/02/23 15:04 Anion Gap 12 (3-11) H 01/02/23 15:04 BUN 6 mg/dl (6-23) 01/02/23 15:04 Creatinine 0.71 mg/dl (0.6-1.2) 01/02/23 15:04 Est Cr Clr Drug Dosing 136.1 ml/min 01/02/23 15:04 Est GFR ( Amer) 131.5 ml/min 01/02/23 15:04 Est GFR (Non-Af Amer) 113.5 ml/min 01/02/23 15:04 BUN/Creatinine Ratio 8.5 (10-20) L 01/02/23 15:04 Glucose 101 mg/dl (70-99(Fasting)) H 01/02/23 15:04 Calcium 9.6 mg/dl (8.6-10.3) 01/02/23 15:04 Phosphorus 3.2 mg/dl (2.5-4.9) 01/02/23 15:04 Magnesium 1.8 mg/dl (1.7-2.4) 01/02/23 15:04 Total Bilirubin 1.0 mg/dl (0.2-1.0) 01/02/23 15:04 AST 21 U/L (13-39) 01/02/23 15:04 ALT 12 U/L (7-52) 01/02/23 15:04 Alkaline Phosphatase 57 U/L (34-104) 01/02/23 15:04 Troponin I High Sens 5.8 pg/ml (0-14) 01/02/23 15:04 Total Protein 8.1 gm/dl (6.0-8.3) 01/02/23 15:04 Albumin 4.6 gm/dl (3.4-5.0) 01/02/23 15:04 Globulin 3.5 gm/dl (2.5-4.0) 01/02/23 15:04 Albumin/Globulin Ratio 1.3 (0.9-2) 01/02/23 15:04 TSH 0.301 uIu/ml (0.300-4.500) 01/02/23 15:04 Urine Color Dark Yellow 01/02/23 16:58 Urine Appearance Clear (Clear) 01/02/23 16:58 Urine pH 6.5 (4.5-7.5) 01/02/23 16:58 Ur Specific [place] 1.025 (1.000-1.030) 01/02/23 16:58 Urine Protein 1+ (Negative) H 01/02/23 16:58 Urine Glucose (UA) Negative (Negative) 01/02/23 16:58 Urine Ketones 4+ (Negative) H 01/02/23 16:58 Urine Blood 3+ (Negative) H 01/02/23 16:58 Urine Nitrite Negative (Negative) 01/02/23 16:58 Urine Bilirubin Negative (Negative) 01/02/23 16:58 Urine Urobilinogen Positive (Negative) H 01/02/23 16:58 Ur Leukocyte Esterase Trace (Negative) H 01/02/23 16:58 Urine WBC (Auto) 1-5 /hpf (0-5) 01/02/23 16:58 Urine RBC (Auto) >30 /hpf (0-4) H 01/02/23 16:58 U Hyaline Cast (Auto) 1-5 /lpf (0-5) 01/02/23 16:58 U Epithel Cells (Auto) 20-30 /lpf (0-5) H 01/02/23 16:58 Urine Bacteria (Auto) Negative (Negative) 01/02/23 16:58 Salicylates < 3.0 mg/dl (3.0-30) L 01/02/23 15:04 Urine Opiates Screen Neg (Neg) 01/02/23 16:58 Ur Methadone, Qual Neg (Neg) 01/02/23 16:58 Acetaminophen < 3 ug/ml (10-30) L 01/02/23 15:04 Urine Barbiturates Neg (Neg) 01/02/23 16:58 Ur Phencyclidine (PCP) Neg (Neg) 01/02/23 16:58 U Amphetamin/Meth Scrn Neg (Neg) 01/02/23 16:58 MDMA (Ecstasy) Screen Neg (Neg) 01/02/23 16:58 U Benzodiazepines Scrn Neg (Neg) 01/02/23 16:58 Ur Cocaine Metabolite Neg (Neg) 01/02/23 16:58 U Marijuana (THC) Screen Pos (Neg) H 01/02/23 16:58 Ethyl Alcohol mg/dL < 10.0 mg/dl (<10.0) 01/02/23 15:04 SARS-CoV-2, RNA, NAAT NEGATIVE (NEGATIVE) 01/02/23 15:[address] 01/02/23 18:07 CT head/brain wo con CLINICAL HISTORY: ams Technique: Contiguous axial CT images of the head were acquired from the base of the skull to the vertex without intravenous contrast administration. Images were viewed in brain, subdural and bone windows. Automated dose lowering techniques and/or adjustment according to patient size were utilized for this exam. Comparison: None available at the time of this dictation. Findings: The ventricles, basal cisterns, and cerebral sulci are normal. There is no acute intracranial hemorrhage or evidence of acute territorial infarction. Neither mass effect, shift of the midline structures, nor abnormal extra-axial fluid collections are shown. Imaged portions of the paranasal sinuses and mastoid air cells are clear. The orbits appear normal. There are no acute fractures of the calvaria or scalp swelling. Impression: No acute intracranial hemorrhage, no evidence of acute territorial infarction or other acute intracranial disease process. ACT 112: Negative or not required by law. Electronically signed by: Sean Delatorre M.D. 01/02/2023 6:35 PM Abdomen/Pelvis CT 01/02/23 18:08 CT abd pelvis wo con CLINICAL HISTORY: hematuria TECHNIQUE: Helical axial images of the abdomen and pelvis were obtained. Automated dose lowering techniques and/or adjustment according to patient size were utilized for this exam. This exam was performed without intravenous contrast. CT DOSE: 922.96 mGycm COMPARISON: None available at the time of this dictation. FINDINGS: Lower chest: No acute abnormality. Liver: Unremarkable. No focal lesions are seen. Gallbladder and biliary tree: No calcified gallstones. Normal caliber wall. No intra- or extrahepatic biliary ductal dilation. Pancreas: Unremarkable, no focal lesions. Spleen: Splenule is incidentally noted. Adrenals: Unremarkable. Kidneys and ureters: Unremarkable. Bladder: Limited evaluation due to underdistention. Reproductive organs: Unremarkable. Bowel: The appendix is normal. Lymph nodes Retroperitoneal: Unremarkable. Pelvic: Unremarkable. Mesenteric: Unremarkable. Peritoneum: Normal. Vessels: Unremarkable. Abdominal wall: Unremarkable. Bones: Minimal degenerative changes are seen. IMPRESSION: No acute abnormalities and in particular no evidence of urothelial mass within limits of noncontrast technique. ACT 112: Negative or not required by law. Electronically signed by: Sean Delatorre M.D. 01/02/2023 6:48 PM PG Care Time/CCT Total # of Minutes Spent Total Time Spent with Patient: Total time spent is greater than 50% in coordination of care (as documented) at patient's floor/unit and/or counseling patient: Coding Level of Care Code 99643 INT INP/OBS CARE 3/75MIN Diagnoses Anxiety with depression F41.8 Hypertension I10 Alcohol withdrawal F10.939
[2023-01-02] MEDS ORDERED: hydrALAZINE HCL 20 MG/ML VIAL IV ONE (22:40)
[2023-01-02] MEDS ORDERED: ACETAMINOPHEN 325 MG TAB PO PRN (23:25)
[2023-01-02] MEDS ORDERED: CEROVITE ADV FORMULA TAB PO STA (23:25)
[2023-01-02] MEDS ORDERED: Ativan IV Alcohol Withdrawal--Active Protocol IV PRN (23:25)
[2023-01-02] MEDS ORDERED: ONDANSETRON INJ 2 MG/ML 2 ML VIAL IV PRN (23:25)
[2023-01-02] MEDS ORDERED: LORazepam 2 MG/1 ML VIAL IV PRN ×3 (23:25)
[2023-01-02] MEDS ORDERED: cloNIDine HCL 0.1 MG TAB PO PRN (23:25)
[2023-01-02] MEDS ORDERED: THIAMINE HCL 100 MG, FOLIC ACID 1 MG in SODIUM CHLORIDE 0.9% 1000ML 1,000 ML IV SCH (23:45)
[2023-01-02 23:50] LABS: Magnesium 1.8 mg/dl (1.7-2.4)
[2023-01-02 23:55] LABS: Phosphorus 3.2 mg/dl (2.5-4.9)
[2023-01-03 06:23] LABS: Bacteria Urine Automated Negative (Negative); Epithelial Cell Urine Auto >30 /lpf (0-5); RBC Urine Automated >30 /hpf (0-4)
[2023-01-03] MEDS ORDERED: hydrALAZINE HCL 20 MG/ML VIAL IV STA (08:04)
[2023-01-03 08:33] LABS: BUN Creatinine Ratio 8.3 (10-20); Creatinine Clr Calc Pharmacy 162.2 ml/min; Est GFR (African American) 140.8 ml/min; Est GFR (Non-African American) 121.5 ml/min; Potassium 3.3 mmol/L (3.5-5.1)
--- NOTE | 2023-01-03 09:03 | Ultrasound Report ---
ULTRASOUND KIDNEYS AND BLADDER CLINICAL HISTORY: Hematuria. Hypertension. COMPARISON STUDY: Abdominal CT dated 01/02/2023. TECHNIQUE: Real-time, grayscale, and color flow sonography of the kidneys and bladder is performed. I mages are reviewed in the transverse and longitudinal planes. FINDINGS: Kidneys: The kidneys are normal in size and echotexture. The right kidney measures 11.5 cm in length and the left kidney measures 11.4 cm in length. There is no hydronephrosis. No shadowing renal calcu li are identified. There is no sonographic evidence of contour deforming renal mass lesion. No perine phric fluid is identified. Bladder: The partially distended bladder is normal as visualized. Ureteral jets were not seen. IMPRESSION: Unremarkable sonographic examination of the kidneys and bladder. ACT 112: Negative or not required by law. Electronically signed by: Dani Peraza M.D. 01/03/2023 9:02 AM
--- NOTE | 2023-01-03 09:08 | Ultrasound Report ---
US duplex renal artery CLINICAL HISTORY: Uncontrolled hypertension. COMPARISON STUDY: Abdomen and pelvis CT 01/02/2023. FINDINGS: The peak systolic velocity within the mid right renal artery is 93 cm/s and the mid left re nal artery is 146 cm/s. The bilateral renal veins are patent. Resistive indices of the bilateral ramana l arcuate arteries are less than 0.7. IMPRESSION: No evidence for renal artery stenosis. ACT 112: Negative or not required by law. Electronically signed by: Jamil Dumont M.D. 01/03/2023 9:07 AM
[2023-01-03] MEDS: FOLIC ACID 1 MG TAB PO SCH (09:25)
[2023-01-03] MEDS: FLUoxetine HCL 20 MG CAP PO SCH (09:25)
[2023-01-03] MEDS: THIAMINE HCL 100 MG TAB PO SCH (09:25)
[2023-01-03] MEDS ORDERED: POTASSIUM CHLORIDE CRTAB 20 MEQ TABCR PO STA (09:42)
--- NOTE | 2023-01-03 10:10 | Electrocardiogram Report ---
Test Reason : Blood Pressure : / mmHG Vent. Rate : 094 BPM Atrial Rate : 094 BPM P-R Int : 142 ms QRS Dur : 078 ms QT Int : 380 ms P-R-T Axes : 077 049 069 degrees QTc Int : 475 ms Normal sinus rhythm Possible Left atrial enlargement Borderline ECG When compared with ECG of 13-AUG-2021 21:40, No significant change was found Confirmed by Ashish Echevarria ([id number]) on 01/03/2023 10:10:36 AM Referred By: REFERRED SELF Confirmed By:Js Echevarria
[2023-01-03 10:31] LABS: Total Protein Urine Random 31.6 mg/dl (0-11.9)
[2023-01-03 10:36] LABS: Creatinine Urine Random 147.9 mg/dl; Protein Creatinine Ratio Urine 0.2 (0-0.2)
[2023-01-03] MEDS: METOPROLOL TARTRATE 50 MG TAB PO SCH ×2 (11:13→20:32)
[2023-01-03] MEDS: AMPICILLIN/SULBACTAM SOD 1,500 MG in 0.9 % SODIUM CHLORIDE 100 ML IV SCH ×2 (11:45→17:43)
[2023-01-03] MEDS: hydrALAZINE HCL 20 MG/ML VIAL IV PRN ×2 (11:45→15:42)
--- NOTE | 2023-01-03 13:05 | Hospitalist Progress Note ---
Date of Service January 03, 2023 Assessment & Plan (1) Anxiety with depression: Plan: Patient reports increased anxiety and difficulty managing things at home. She is having a hard time adjusting after having her 4th baby. She denies SI/HI or hallucinations. Was on Fluoxetine which she was not taking as directed -Continue Fluoxetine 40mg po qAM - Psychiatry consultation pending (2) Hypertension: Plan: Renovascular hypertension ruled out. She is now on metoprolol. We will use intravenous hydralazine as needed. She may need addition of a vasodilator yet this admission. Clonidine has been discontinued. UA with 3+ blood, protein, urobilinogen. No bacteria. No stones or urothelial mass noted on imaging. Possible nephritic syndrome contributing to patient's significant hypertension vs severe hypertension leading to hematuria? Renal function is intact. -Ordered urine microscopy, further assess RBCs in urine -Spot Urine Protein:Creatinine -Consider Nephrology consultation - additional workup with complements, KAI, ANCA, Heptatitis panel pending above results (3) Alcohol withdrawal: Plan: Possible EtOH withdrawal. Patient reports drinking on most days of the week, several drinks per day. Unable to fully quantify amount. Last drink 1-2 days ago. EtOH level <10. She does report having shakes before after going without alcohol. Clonidine has been discontinued. Continue a WSS and vitamin supplements (4) Microscopic hematuria: Plan: This could be related to menses. Nevertheless, urine cultures pending. She is currently on Unasyn which will be discontinued if the urine culture is negative. Plan Hopeful discharge to home tomorrow, January 04 Admission and Anticipated Discharge Date Admission Date: January 02, 2023 Subjective Alert and oriented. Pleasant. She has requested psychiatric evaluation due to her anxiety. Uncontrolled hypertension present on admission. Renovascular hypertension has been ruled out with unremarkable renal ultrasound and normal renal artery ultrasound. Thyroid profile is also normal. Metoprolol has been started. We will use intravenous hydralazine as needed. She may also have a urinary tract infection. Urine cultures pending. She is now on Unasyn, day 1. Potassium replacement continues. Review of Systems Review of Systems: Constitutional-no fever or chills ENT-no blurred vision, no double vision, no epistaxis, no sore throat Respiratory-no cough, no wheezing, no shortness of breath Cardiac-no palpitations, no chest pain, no syncope GI-no nausea, vomiting, diarrhea, melena, hematochezia -no urinary retention, no urinary incontinence, no dysuria, no hematuria Musculoskeletal-no joint pain, no muscle tenderness Skin-no bruising, no rashes, no pruritus Neuro-no isolated weakness, no paresthesia, no weakness Psych-anxiety is problematic according to the patient Physical Exam Physical Exam: General-alert and oriented x3, no fevers, no chills HEENT-head atraumatic and normocephalic, pupils equal and reactive to light, extraocular muscles intact Neck-no lymphadenopathy or thyromegaly, trachea midline Chest-clear to auscultation percussion. No rales wheezing or rhonchi Cardiac-regular rate and rhythm, normal S1 and S2 Abdomen-normal bowel sounds, nontender, no hepatosplenomegaly Extremities-no cyanosis, clubbing, or edema Neuro-cranial nerves II through XII intact, motor and sensory function within normal limits, strength symmetrical , no focal deficits Psych-normal affect, normal mood Results & Data Results & Data Vital Signs (Past 12 Hours) Vital Signs Temp Pulse Pulse Resp BP BP Pulse Ox 01/03/23 12:38 165/116 H 01/03/23 11:39 37.3 C 87 18 178/127 H 100 01/03/23 11:05 171/122 H 176/118 H 01/03/23 09:13 77 169/115 H 181/109 H 98 01/03/23 07:38 37.1 C 84 20 174/116 H 99 01/03/23 04:46 95 H 01/03/23 02:41 36.8 C 109 H 16 172/128 H 100 O2 Del Method 01/03/23 12:38 01/03/23 11:39 Room Air 01/03/23 11:05 01/03/23 09:13 Room Air 01/03/23 07:38 Room Air 01/03/23 04:46 01/03/23 02:41 Room Air Laboratory Results 01/02/23 15:04 01/03/23 07:50 PG Care Time/CCT Total # of Minutes Spent Total Time Spent with Patient: Total time spent is greater than 50% in coordination of care (as documented) at patient's floor/unit and/or counseling patient: Coding Level of Care Code 93679 SUB INP/OBS CARE 3/50MIN Diagnoses Anxiety with depression F41.8 Hypertension I10 Alcohol withdrawal F10.939 Microscopic hematuria R31.29
[2023-01-03] MEDS: POTASSIUM CHLORIDE CRTAB 20 MEQ TABCR PO SCH (20:33)
[2023-01-04] MEDS: AMPICILLIN/SULBACTAM SOD 1,500 MG in 0.9 % SODIUM CHLORIDE 100 ML IV SCH ×4 (00:22→17:38)
[2023-01-04] MEDS: hydrALAZINE HCL 20 MG/ML VIAL IV PRN ×2 (00:34→12:19)
[2023-01-04 08:27] LABS: BUN Creatinine Ratio 12.3 (10-20); Est GFR (African American) 137.1 ml/min; Est GFR (Non-African American) 118.3 ml/min; Potassium 3.9 mmol/L (3.5-5.1)
[2023-01-04] MEDS: FOLIC ACID 1 MG TAB PO SCH (08:34)
[2023-01-04] MEDS: METOPROLOL TARTRATE 50 MG TAB PO SCH ×2 (08:34→21:44)
[2023-01-04] MEDS: POTASSIUM CHLORIDE CRTAB 20 MEQ TABCR PO SCH (08:34)
[2023-01-04] MEDS: FLUoxetine HCL 20 MG CAP PO SCH (08:34)
[2023-01-04] MEDS: THIAMINE HCL 100 MG TAB PO SCH (08:34)
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
[2023-01-04] MEDS ORDERED: amLODIPine BESYLATE 5 MG TAB PO ONE (09:00)
[2023-01-04] MEDS ORDERED: amLODIPine BESYLATE 5 MG TAB PO SCH (09:00)
[2023-01-04] MEDS ORDERED: LORazepam 1 MG TAB PO STA (10:36)
[2023-01-04] MEDS ORDERED: LORazepam 1 MG TAB PO PRN (10:48)
--- NOTE | 2023-01-04 13:33 | Hospitalist Progress Note ---
Date of Service January 04, 2023 Assessment & Plan (1) Anxiety with depression: Plan: Patient reports increased anxiety and difficulty managing things at home. She is having a hard time adjusting after having her 4th baby. She denies SI/HI or hallucinations. Was on Fluoxetine which she was not taking as directed -Continue Fluoxetine 40mg po qAM, Ativan as needed - Psychiatry consultation appreciated. Recommending inpatient treatment once the blood pressure is controlled. (2) Hypertension: Plan: Renovascular hypertension ruled out. She is now on metoprolol and amlodipine was added today, January 04. Will use intravenous hydralazine as needed. She may need additional medication. Clonidine has been discontinued. (3) Alcohol withdrawal: Plan: EtOH withdrawal ruled out. No DTs. EtOH level <10 on admission. (4) Microscopic hematuria: Plan: This could be related to menses. Nevertheless, urine culture pending. She is currently on Unasyn, day 2, which will be discontinued if the urine culture is negative. Plan Anticipate discharge to inpatient psychiatric facility once the blood pressure i s better controlled. Admission and Anticipated Discharge Date Admission Date: January 02, 2023 Subjective Alert and oriented. She has been seen by psychiatry who recommended inpatient psychiatric treatment once her blood pressure is controlled. Amlodipine has been added to metoprolol. She will use Ativan as needed for anxiety. Mild hypokalemia has been corrected. Oral potassium supplementation discontinued. She will remain on intravenous Unasyn until urine culture results are available. They are still pending. Review of Systems Review of Systems: Constitutional-no fever or chills ENT-no blurred vision, no double vision, no epistaxis, no sore throat Respiratory-no cough, no wheezing, no shortness of breath Cardiac-no palpitations, no chest pain, no syncope GI-no nausea, vomiting, diarrhea, melena, hematochezia -no urinary retention, no urinary incontinence, no dysuria, no hematuria Musculoskeletal-no joint pain, no muscle tenderness Skin-no bruising, no rashes, no pruritus Neuro-no isolated weakness, no paresthesia, no weakness Psych-anxiety is problematic according to the patient Physical Exam Physical Exam: General-alert and oriented x3, no fevers, no chills HEENT-head atraumatic and normocephalic, pupils equal and reactive to light, extraocular muscles intact Neck-no lymphadenopathy or thyromegaly, trachea midline Chest-clear to auscultation percussion. No rales wheezing or rhonchi Cardiac-regular rate and rhythm, normal S1 and S2 Abdomen-normal bowel sounds, nontender, no hepatosplenomegaly Extremities-no cyanosis, clubbing, or edema Neuro-cranial nerves II through XII intact, motor and sensory function within normal limits, strength symmetrical , no focal deficits Psych-normal affect, normal mood Results & Data Results & Data Vital Signs (Past 12 Hours) Vital Signs Temp Pulse Pulse Resp BP BP Pulse Ox 01/04/23 11:59 36.9 C 72 18 154/118 H 100 01/04/23 08:00 67 01/04/23 10:05 180/129 H 01/04/23 08:13 37.1 C 73 18 159/123 H 171/120 H 98 01/04/23 03:22 36.5 C 76 16 135/94 92 O2 Del Method 01/04/23 11:59 Room Air 01/04/23 08:00 01/04/23 10:05 01/04/23 08:13 Room Air 01/04/23 03:22 Room Air Laboratory Results 01/02/23 15:04 01/04/23 07:32 PG Care Time/CCT Total # of Minutes Spent Total Time Spent with Patient: Total time spent is greater than 50% in coordination of care (as documented) at patient's floor/unit and/or counseling patient: Coding Level of Care Code 90097 SUB INP/OBS CARE 3/50MIN Diagnoses Anxiety with depression F41.8 Hypertension I10 Alcohol withdrawal F10.939 Microscopic hematuria R31.29
[2023-01-04] MEDS: amLODIPine BESYLATE 5 MG TAB PO SCH (21:44)
[2023-01-05] MEDS: AMPICILLIN/SULBACTAM SOD 1,500 MG in 0.9 % SODIUM CHLORIDE 100 ML IV SCH ×2 (01:13→05:42)
[2023-01-05] MEDS: amLODIPine BESYLATE 5 MG TAB PO SCH (07:26)
[2023-01-05] MEDS: METOPROLOL TARTRATE 50 MG TAB PO SCH (07:26)
[2023-01-05] MEDS: FLUoxetine HCL 20 MG CAP PO SCH (07:27)
[2023-01-05] MEDS: FOLIC ACID 1 MG TAB PO SCH (07:27)
[2023-01-05] MEDS: THIAMINE HCL 100 MG TAB PO SCH (07:27)
[2023-01-05 08:32] LABS: BUN Creatinine Ratio 9.1 (10-20); Calcium 9.3 mg/dl (8.6-10.3); Creatinine Clr Calc Pharmacy 146.8 ml/min; Est GFR (African American) 136.4 ml/min; Est GFR (Non-African American) 117.7 ml/min; Potassium 3.8 mmol/L (3.5-5.1)
[2023-01-05] MEDS ORDERED: amLODIPine BESYLATE 5 MG TAB PO SCH (09:00)
[2023-01-05] MEDS ORDERED: lisinopril 5 MG TAB PO SCH (10:00)
[2023-01-05 11:00] LABS: Marijuana Quant, GCMS Urine >5000 ng/mL (<5)
--- NOTE | 2023-01-05 12:01 | Discharge Summary ---
Date of Service January 05, 2023 Admission HPI Per Admitting Provider Gaby Bellamy is a 32yo female with history of generalized anxiety disorder and HTN presenting with worsening anxiety and hypertension. Patient states that she has been feeling very anxious for the last several days. She was seen by her PCP on 12/31/22 with this complaint and was restarted on her Fluoxetine. Of note, patient is a somewhat poor historian. Received Ativan prior to my interview. Patient recently gave to a son in September 2023. She has 4 children at home that she cares for. She reports feeling good for about 1 month after having her baby, however, after that she has been having increased difficulty managing things at home. She reports difficulty keeping to a schedule and getting things done. She states that she has been feeling much more anxious and depressed over the last several weeks. She has not been eating well due to lack of appetite or sleeping at home. She states that she is "not thinking clearly" at home sometimes and gets confused. She denies suicidal or homicidal ideation, denies hallucinations. She has not been taking her medications as prescribed. Reports missing some doses then taking double doses. She does report to drinking alcohol fairly frequently - she reports drinking on most days of the week, beer/liquor and wine at times. She is unable to quantify the amount of alcohol that she drinks daily. Last drink was 1-2 days ago. She has had shakes before after quitting drinking but has never had withdrawal seizures or DTs. She reports having chest pains at times as well as shortness of breath. Denies abdominal pain, nausea, vomiting or diarrhea. No additional complaints In the ER she is hypertensive ER Course: NSS x 2L Ativan 1mg IV x 2 doses KCL 40mEq po Hydralazine 5mg IV Principal Diagnosis Uncontrolled hypertension, depression, anxiety disorder Discharge Exam General-alert and oriented x3, no fevers, no chills HEENT-head atraumatic and normocephalic, pupils equal and reactive to light, extraocular muscles intact Neck-no lymphadenopathy or thyromegaly, trachea midline Chest-clear to auscultation percussion. No rales wheezing or rhonchi Cardiac-regular rate and rhythm, normal S1 and S2 Abdomen-normal bowel sounds, nontender, no hepatosplenomegaly Extremities-no cyanosis, clubbing, or edema Neuro-cranial nerves II through XII intact, motor and sensory function within normal limits, strength symmetrical , no focal deficits Psych-normal affect, normal mood Discharge Data Allergies Allergy/AdvReac Type Severity Reaction Status Date / Time No Known Allergies Allergy Verified 11/20/22 12:50 Consultations 01/02/23 19:54 ED Decision to Admit Stat 01/03/23 12:45 Consult Psychiatry Routine Ordered Studies 01/02/23 18:07 CT head/brain wo con Stat 01/02/23 18:08 CT abd pelvis wo con Stat 01/03/23 07:32 US Renal Bladder [US renal/blad retro comp] Urgent US duplex renal artery Urgent Hospital Course (1) Anxiety with depression: She has been seen by psychiatry and I discussed the case with them today, January 05. She was initially going to be discharged to inpatient facility but she has improved and would rather just go home and follow-up as an outpatient. This is okay with psychiatry. She is using Ativan as needed for anxiety at this time. Prozac has been discontinued. She denies SI/HI or hallucinations. (2) Hypertension: Renovascular hypertension ruled out. She is now on metoprolol and amlodipine. I attempted to increase the amlodipine dosage today for better blood pressure control but this was refused by pharmacist Jennifer Lomas. Apparently she is uncomfortable with amlodipine 10 mg twice a day for blood pressure control. This necessitates the addition of another blood pressure medication, lisinopril. Hopefully she will not have any significant side effects such as angioedema, renal dysfunction or hyperkalemia with this JONATHAN inhibitor. The patient is aware of the current situation. Lisinopril was added today, January 04. She received intravenous hydralazine as needed while hospitalized. Clonidine was previously discontinued this admission. (3) Alcohol withdrawal: EtOH withdrawal ruled out. No DTs. EtOH level <10 on admission. (4) Microscopic hematuria: This could be related to menses. This will need outpatient follow-up. Urine culture is negative. Unasyn has been discontinued. Plan Discharge home today, January 05, on amlodipine, metoprolol, lisinopril. Also Ativan for as needed usage. She will follow-up with psychiatry as an outpatient. Total Time Total Time Spent Total Time Spent (In Minutes): 40 minutes Discharge Plan Discharge Items Patient Disposition: Home - Self-Care Reason For Visit: ELEVATED BLOOD PRESSURE Discharge Diagnosis: Uncontrolled hypertension, depression, anxiety disorder Activity: Resume your previous activity Non-emergency contact: Primary Care Provider Call non-emergency contact if: you have any medication questions Follow-up/Referrals: Manisha Peoples MD [Primary Care Provider] - Diet: Regular Addtl Attending Provider Instructions: Blood pressure medications include metoprolol, amlodipine, lisinopril. Blood pressure will need further outpatient follow-up and adjustment of medications. Use Ativan as needed for anxiety. Follow-up with outpatient psychiatry as instructed Pending Studies at Discharge: No Stand-Alone Forms: My [facility] [employer], Smoking Cessation Medications and DC Order Prescriptions: New amlodipine 5 mg tablet 5 mg PO BID Qty: 60 0RF metoprolol tartrate 50 mg Tablet 50 mg PO BID Qty: 60 0RF lisinopril [Zestril] 5 mg Tablet 5 mg PO QAM Qty: 30 0RF lorazepam 1 mg Tablet 1 mg PO Q6H PRN (Reason: anxiety) Qty: 30 0RF Discontinued fluoxetine 40 mg capsule 40 mg PO QAM Qty: 30 0RF Discharge Orders: Discharge Order (Routine); Ordered 01/05/23 Ordered By: Maxime Pope Admission Data Admit Date/Time: 01/02/23 20:25 Attending Provider: Maxime Pope Admit Provider: Aviva Baer Primary Care Provider: Manisha Peoples Other Providers: Aviva Baer ; Christiane Dobbs ; Nora Pendleton ; Anuj Venegas Coding Level of Care Code 23545 INP/OBS DISCH >30 MIN Diagnoses Anxiety with depression F41.8 Hypertension I10 Alcohol withdrawal F10.939 Microscopic hematuria R31.29
--- NOTE | 2023-01-05 13:10 | Psychiatric Progress Note ---
Date of Service January 05, 2023 Impression / Recommendations Impression 32 yo woman with recent increased alcohol use and history of post- depression with worsening depression. Patients qualitative MJ level is quite high. In reviewing her chart I view post psychosis as highly unlikely and symptoms more likely substance induced, possible interactions with Prozac. Any thoughts to harm others or possible alford likely while intoxicated. 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 (1) Cannabis abuse with cannabis-induced disorder: (2) mood disturbance: (3) Alcohol use disorder: (4) Alcohol withdrawal: Plan patient no longer wants inpatient psychiatric care based on MSE and substance induced component no acute criteria for an involuntary commitment, particularly when supports return home and will be home with her and supervise around children she doesn't want rehab tx she understands its the weekend so can't set up psych aftercare to address her concerns for anxiety, safety plan completed with and given purple resource book discontinue Prozac as far as prn medication upon discharge, I'd avoid ativan given substance abuse. I'd suggest allowing Prozac to clear and see outpatient provider/PCP but if hospitalist desires short supply would recommend hydroxyzine 25 mg po q6hr prn. Protective Factors Assessment Employed: No Interval History Identifying Information 32 yo female seen in consultation by Dr. Dobbs on 01/04/23. Chief Complaint "I just want to go home. I blame Prozac." Review of Systems Notes denies SI/HI/alford. Subjective Subjective Patient was seen & assessed and interval progress reviewed with nursing and Dr. Pope. Chart reviewed. Patient has been taking Prozac intermittently for post depression and believes that it is causing her mood to be worse and perhaps causing intrussive thoughts. She refused it this am. She is minimizing her ETOH use. Physical Exam Psychiatric alert, cooperative, bright and engaged. Thoughts are organized and she is appropriate in conversation. No HI/SI/alford. Vital Signs (Past 24 Hours) Last Vital Signs Temp 36.6 C 01/05/23 12:35 Pulse 71 01/05/23 12:35 Resp 20 01/05/23 12:35 BP 179/134 H 01/05/23 12:35 Pulse Ox 98 01/05/23 12:35 O2 Del Method Room Air 01/05/23 11:45 Results & Data ([facility]) Laboratory Results Laboratory Results - last 24 hr 01/02/23 01/05/23 16:58 07:36 Sodium 140 Potassium 3.8 Chloride 107 Carbon Dioxide 24 Anion Gap 9 BUN 6 Creatinine 0.66 Est Cr Clr Drug Dosing 146.8 Est GFR ( Amer) 136.4 Est GFR (Non-Af Amer) 117.7 BUN/Creatinine Ratio 9.1 L Glucose 88 Calcium 9.3 U Marijuana THC Carboxy >5000 H Drug Screen Comment SEE NOTE Current Inpatient Medications Current Inpatient Medications: Current Inpatient Medications Acetaminophen (Acetaminophen 325 Mg Tab) 650 mg PO Q4H PRN PRN Reason: pain/fever Stop: 02/01/23 23:24 Last Admin: 01/04/23 00:33 Dose: 650 mg Amlodipine Besylate (Amlodipine Besylate 5 Mg Tab) 10 mg PO BID [facility] Stop: 02/04/23 08:59 Last Admin: 01/05/23 10:29 Dose: 10 mg Fluoxetine HCl (Fluoxetine Hcl 20 Mg Cap) 40 mg PO [facility] Stop: 02/02/23 08:59 Last Admin: 01/05/23 07:27 Dose: 40 mg Folic Acid (Folic Acid 1 Mg Tab) [facility] Stop: 02/02/23 08:59 Last Admin: 01/05/23 07:27 Dose: 1 mg Hydralazine HCl (Hydralazine Hcl 20 Mg/Ml Vial) 10 mg IV Q2H PRN PRN Reason: SBP > 180 or DBP > 110 Stop: 02/02/23 08:03 Last Admin: 01/04/23 12:19 Dose: 10 mg Ampicillin Sodium/Sulbactam Sodium 1,500 mg/ Sodium Chloride 104 mls @ 200 mls/hr IV Q6H [facility]; Protocol Stop: 01/08/23 07:44 Last Infusion: 01/05/23 06:35 Dose: Infused Lisinopril (Lisinopril 5 Mg Tab) [facility] Stop: 02/04/23 09:59 Last Admin: 01/05/23 10:29 Dose: 5 mg Lorazepam (Lorazepam 2 Mg/1 Ml Vial) 3 mg IV ONCE PRN; Protocol PRN Reason: EtOH Withdrawal AWSS Score 10+ Lorazepam (Lorazepam 2 Mg/1 Ml Vial) 2 mg IV UD PRN; Protocol PRN Reason: EtOH Withdrawal AWSS Score 8,9 Stop: 02/01/23 23:24 Lorazepam (Lorazepam 2 Mg/1 Ml Vial) 1 mg IV UD PRN; Protocol PRN Reason: EtOH Withdrawal AWSS Score 6,7 Stop: 02/01/23 23:24 Lorazepam (Lorazepam 1 Mg Tab) 1 mg PO Q6H PRN PRN Reason: Anxiety Stop: 02/03/23 10:47 Metoprolol Tartrate (Metoprolol Tartrate 50 Mg Tab) 50 mg PO BID [facility] Stop: 02/02/23 08:59 Last Admin: 01/05/23 07:26 Dose: 50 mg Ondansetron HCl (Ondansetron Inj 2 Mg/Ml 2 Ml Vial) 4 mg IV Q6H PRN PRN Reason: Nausea Stop: 02/01/23 23:24 Thiamine HCl (Thiamine Hcl 100 Mg Tab) 100 mg PO QAM [facility] Stop: 02/02/23 08:59 Last Admin: 01/05/23 07:27 Dose: 100 mg Mental Health & Subst Abuse Tx Therapist Name of Therapist: None C[employer]ure Alterations Dressmaker Name of Couture Alterations Dressmaker: None Post Discharge Appointments Primary Care Physician Name Of Family Doctor/PCP: Dr Pe[place], [facility] [place]
== END 2023-01-05 13:18 | disposition home or self-care (01) | DRG 880 ==
LOC: ED 13:41 → EDINP 20:25 → SUATTDRO 20:25 → 2N 23:38